=== PATIENT | male | born 1960 | race African-American/Black ===

== ENCOUNTER 2020-02-14 05:47 | Emergency (ER) | payer OTHER ==
[~2020-02-14] VITALS: Ht 180.3 cm; Wt 75.8 kg
[2020-02-14] MEDS ORDERED: CHILDREN'S ASPI81 MG PO (06:12)
[2020-02-14] MEDS ORDERED: NORVASC 2.5 MG2.5 M1 PO (06:12)
[2020-02-14] MEDS ORDERED: CALAMINE LOTIO177 M1 TOP (06:13)
[2020-02-14] MEDS ORDERED: LIPITOR80 MG PO (06:13)
[2020-02-14] MEDS ORDERED: CHOLECALCIFEROL PO (06:14)
[2020-02-14] MEDS ORDERED: CARVEDILOL25 MG PO (06:14)
[2020-02-14] MEDS ORDERED: CLOPIDOGREL75 MG PO (06:15)
[2020-02-14] MEDS ORDERED: CLONIDINE PATCH TRANSDERM (06:15)
[2020-02-14] MEDS ORDERED: VOLTAREN100 GM TOP (06:16)
[2020-02-14] MEDS ORDERED: COLACE100 MG PO (06:17)
[2020-02-14] MEDS ORDERED: FERROUS SULFATE PO (06:17)
[2020-02-14] MEDS ORDERED: FUROSEMIDE 40 M40 MG PO (06:18)
[2020-02-14] MEDS ORDERED: MUCINEX600 MG PO (06:18)
[2020-02-14] MEDS ORDERED: HYDRALAZINE 5050 MG PO (06:19)
[2020-02-14] MEDS ORDERED: ZOFRAN 4 MG ORAL4 MG PO (06:19)
[2020-02-14] MEDS ORDERED: ZOFRAN4 MG PO (06:20)
[2020-02-14] MEDS ORDERED: PROTONIX40 M2 PO (06:20)
[2020-02-14] MEDS ORDERED: SERTRALINE HCL100 MG PO (06:21)
[2020-02-14] MEDS ORDERED: GAS RELIEF80 MG PO (06:21)
[2020-02-14] MEDS ORDERED: FLOMAX0.4 MG PO (06:22)
[2020-02-14] MEDS ORDERED: TUMS PO (06:22)
[2020-02-14] MEDS ORDERED: TYLENOL PO (06:23)
[2020-02-14] MEDS ORDERED: [UNRECOGNIZED DRUG - OTHER] TOP (06:24)
[2020-02-14] MEDS ORDERED: EC-NAPROSYN375 MG PO (06:33)
[2020-02-14 06:37] VITALS: BP 147/96
== END 2020-02-14 06:46 | disposition home or self-care (01) ==
LOC: ER 05:47
DX: M70.21 Olecranon bursitis, right elbow (principal); I10 Essential (primary) hypertension; Z79.82 Long term (current) use of aspirin; Z79.899 Other long term (current) drug therapy; Y93.89 Activity, other specified

== ENCOUNTER 2020-02-22 06:00 | Emergency (ER) | payer OTHER ==
[~2020-02-22] VITALS: Ht 180.3 cm; Wt 75.8 kg
--- NOTE | ~2020-02-22 | EKG ---
[facility] Raul Pope [place] [address] ELECTROCARDIOGRAM REPORT Name: JOSE ROBLES Room #: DEP [facility].#: [id number] Admission: 02/22/20 Attend Phys: Discharge: 02/22/20 Date of : 60 Report #: [id number] THIS REPORT FOR: cc: [facility] - Clinic physician unknown [facility] - Clinic physician unknown Kadie Engle MD ~ THIS REPORT FOR: //name// Default Test Date: 2020-02-22 Test Time: 09:00:06 Pat Name: JOSE ROBLES Department: Room: Gender: M Adult Caregiver: JOHN : 1960 Requested By: oYel Montyoa Order Number: [id number] MD: Measurements Intervals [place] Rate: 61 P: 69 NE: 126 QRS: 65 QRSD: 96 T: 84 QT: 433 QTc: 437 Interpretive Statements Sinus rhythm Probable left atrial enlargement Left ventricular hypertrophy Borderline T abnormalities, lateral leads ST elevation, consider anterior injury Baseline wander in lead(s) V6 No previous ECG available for comparison [email or web address] By: 0900 9 Epiphany EpiphanyMD /EPI
[~2020-02-22 06:00] MED LIST: CALAMINE LOTIO177 M1 TOP; CARVEDILOL25 MG PO; CHILDREN'S ASPI81 MG PO; CHOLECALCIFEROL PO; CLONIDINE PATCH TRANSDERM; CLOPIDOGREL75 MG PO; COLACE100 MG PO; EC-NAPROSYN375 MG PO; FERROUS SULFATE PO; FLOMAX0.4 MG PO; FUROSEMIDE 40 M40 MG PO; GAS RELIEF80 MG PO; HYDRALAZINE 5050 MG PO; LIPITOR80 MG PO; MUCINEX600 MG PO; NORVASC 2.5 MG2.5 M1 PO; PROTONIX40 M2 PO; SERTRALINE HCL100 MG PO; TUMS PO; TYLENOL PO; VOLTAREN100 GM TOP; ZOFRAN 4 MG ORAL4 MG PO; ZOFRAN4 MG PO; [UNRECOGNIZED DRUG - OTHER] TOP
[2020-02-22 09:20] LABS: ABSOLUTE NEUTROPHILS 6.3 thou/uL (1.4-8.2); BASOPHILS 1.1 % (0.0-2.0); EOSINOPHILS 2.1 % (0.0-3.0); HEMATOCRIT 30.8 % (42.0-52.0); LYMPHOCYTES 14.7 % (24.0-44.0); MCH 28.7 pg (26.0-34.0); MCHC 32.3 g/dL (28.0-37.0); MCV 88.9 fL (80.0-100.0); MONOCYTES 7.7 % (1.0-8.0); PLATELET COUNT 189 thou/uL (150-400); POLYS 74.4 % (36.0-66.0); RBC 3.47 mil/uL (4.50-6.00); RDW 16.2 % (10.5-14.5); WBC 8.4 thou/uL (4.0-11.0)
[2020-02-22 09:59] LABS: CALCIUM 9.1 mg/dL (8.5-10.1); POTASSIUM 4.7 mmol/L (3.5-5.1)
[2020-02-22 10:07] LABS: PLATELET ESTIMATE NORMAL
[2020-02-22] MEDS ORDERED: ULTRAM 50MG TAB50 MG PO (10:29)
[2020-02-22 11:06] VITALS: BP 125/94
== END 2020-02-22 11:06 | disposition home or self-care (01) ==
LOC: ER 06:00
PROVIDERS: Emergency Medicine
DX: M25.462 Effusion, left knee (principal); I12.0 Hypertensive chronic kidney disease with stage 5 chronic kidney disease or end stage renal disease; N18.6 End stage renal disease; F17.210 Nicotine dependence, cigarettes, uncomplicated; Z99.2 Dependence on renal dialysis; Z95.828 Presence of other vascular implants and grafts; Z79.899 Other long term (current) drug therapy; Z79.82 Long term (current) use of aspirin

== ENCOUNTER 2020-02-28 09:32 | Inpatient (IN) | payer OTHER ==
[2020-02-28] VITALS (7 sets, daily range): BP systolic 115–137; BP diastolic 74–91
[~2020-02-28] VITALS: Ht 180.3 cm; Wt 64.7 kg
--- NOTE | ~2020-02-28 | HC ---
[facility] [place] [address] CONSULTATION Name: JOSE ROBLES Room #: 208-P [facility] IN ..#: [id number] Admission: 02/28/20 Attend Phys: Sarah Mcmanus Discharge: Date of : 60 Report #: [id number] THIS REPORT FOR: cc: JAIDEN - Family physician unknown JAIDEN - Family physician unknown Jacobo Duggan MD ~ CC: JAIDEN unknown Sarah Mcmanus DATE OF SERVICE: 02/28/2020 NEPHROLOGY CONSULTATION REASON FOR CONSULTATION: End-stage renal disease requiring hemodialysis. HISTORY OF PRESENT ILLNESS: This is a 59-year-old male with a history of end-stage renal disease. He is a chronic hemodialysis patient. He presented by EMS to the Emergency Room today with chest pain. This chest pain actually started yesterday morning continued intermittently overnight and again this morning. He has a history of coronary artery disease with previous coronary artery stent placement done at [facility]. He states the pain was similar to his pain he had prior to that. He was accompanied by some mild dyspnea, nausea, and diaphoresis. It improved and is better now. He is heading to the prosthetic lab technician for coronary angiography. From a renal standpoint, the patient has end-stage renal disease due to hypertension. He has been on dialysis for nearly a year. He dialyzes using a left upper arm brachiobasilic fistula. He dialyzes at dialysis care center at [facility] ____. He dialyzes on a Wednesday, , Wednesday basis and last dialyzed yesterday on 02/27/2020. He states he usually dialyzes 4 hours with about a 3 liter ultrafiltration. He states his dialysis has been fairly uncomplicated. PAST MEDICAL HISTORY: Longstanding hypertension, which led to his end-stage renal disease. He is on at least 5 drugs for hypertension. Within about 6 months ago or a year he had chest pain and had an elevated troponin and had the coronary artery stent placed at [place]. He is unaware what artery that is in. Only other surgery was for his dialysis fistula. He has been a long-term smoker. He knows of no underlying pulmonary problems. MEDICATIONS: On admission includes amlodipine 10 mg daily, furosemide 80 mg twice daily, tamsulosin 0.8 mg daily, carvedilol 25 mg b.i.d., hydralazine 100 mg t.i.d. and a Catapres patch weekly. He is also on pantoprazole 40 mg daily, aspirin 81 mg daily, Plavix 75 mg daily, sertraline 100 mg daily and several p.r.n. medications. [address] [address] CONSULTATION Name: JOSE ROBLES Michael Room #: 208-P [facility] IN M.R.#: [id number] Admission: 02/28/20 Attend Phys: Sarah Mcmanus Discharge: Date of : 60 Report #: [id number] FAMILY HISTORY: Negative for renal disease. SOCIAL HISTORY: The patient is a , lives in [place], [place]. He is medically disabled. He had stopped smoking after he had coronary stents placed, but started again over the past month or two and states he can quit again. REVIEW OF SYSTEMS: Chest pain is currently better. Denies dyspnea. Denies cough or fever. States his dialysis have gone okay. He has not had recent edema. He has occasional nausea. No change in bowel habits at this time. No fever or suggestions of COVID symptoms. PHYSICAL EXAMINATION: GENERAL: A 59-year-old male, awake, alert and oriented, in no distress at this time. VITAL SIGNS: Blood pressure 125/76, heart rate 62, respiratory rate 9, temperature 37.2 degrees centigrade, oxygen saturation 100%. HEENT: Shows pupils are equal and reactive. Sclerae nonicteric. Oral mucosa is moist. NECK: Shows no JVD or adenopathy. CHEST: Clear bilaterally. BACK: Shows no CVA tenderness. CARDIOVASCULAR: Heart has a regular rate and rhythm. No murmur, gallop or rub. ABDOMEN: Has active bowel sounds, is soft and nontender. No organomegaly or masses. EXTREMITIES: Show no edema. He has a left upper arm brachiobasilic fistula with strong flow. LABORATORY DATA: Sodium 130, potassium 3.9, chloride 93, bicarbonate 26, BUN 50, creatinine 7.7, glucose 98, calcium 8.8. Troponin 0.45, hemoglobin 10.7, hematocrit 32.9, white count 10.3, platelets 186,000, normal differential on the white count. Chest x-ray is clear. ASSESSMENT: 1. End-stage renal disease, with chronic hemodialysis. He is due for dialysis tomorrow morning. He will be going for a cardiac catheterization. I will order the dialysis for the morning including followup labs. We will run him his usual run of 4 hours with 3 liters of ultrafiltration. 2. Hypertension, historically severe. He is on 5 medications. Volume is pretty good on exam. 3. Coronary artery disease with current chest pain. He had a previous cardiac catheterization and stent. We will await cardiology's word once they do his catheterization as to the status of those vessels. 4. Anemia of end-stage renal disease. We will defer to his outpatient dialysis [facility] [address] [place] [address] CONSULTATION Name: JOSE ROBLES Room #: 208-P [facility] IN .R.#: [id number] Admission: 02/28/20 Attend Phys: Sarah Mcmanus Discharge: Date of : 60 Report #: [id number] unit for management unless it changes abruptly. PLAN: 1. I will schedule dialysis first thing tomorrow morning depending upon the timing of his cardiac catheterization. 2. Concerning his blood pressure control, he could work off some of those medications and work more on volume control and get his blood pressure generally better. I will not make those changes at this point, as we would need more time available. 3. We will follow along the care of this pleasant patient. By: 1649 1709 Jacobo Duggan MD /ricardo
--- NOTE | ~2020-02-28 | EMS ---
[address] [address] EMS Patient Care Report Name: JOSE ROBLES Room #: REG SVITLANA Tristan#: [id number] Admission: 02/28/20 Attend Phys: Discharge: Date of : 60 Report #: [id number] THIS REPORT FOR: //name// Report Transmitted: 02/28/2020 10:11 EMS Care Summary [place], [place]/[facility] Incident [id number] @ 02/28/2020 08:49 Incident [id number] [place] [address] Patient JOSE ROBLES Male, 59 Years 1960 Patient Address [id number] [place] [address] [address] [place] [address] Patient History Congestive Heart Failure (CHF),Hypertension (HTN),Stroke/CVA,Dialysis, Patient Allergies Penicillin allergy, Patient Medications Amlodipine, Atorvastatin, Furosemide, Carvedilol, Heparin, Hydralazine, Chief Complaint CHEST PAIN Disposition Transported No Lights/[place] Dispatch Reason Chest Pain (Non-Traumatic) Transported To [facility] Narrative PT FOUND SITTING IN WHEELCHAIR OUTSIDE. [facility] P45 ON SCENE. ALL CREW WEARING MASKS. STAFF STATES THAT PT AHS BEEN C/O CP, R SHOULDER PAIN AND NUMB FINGERS THIS AM. PT STATES THAT IT IS A /10. PT DENIES N/V, SOA OR OTHER COMPLAINTS. PT STATES THAT HE WAS BREATHING FAST WHEN FINGERS STARTED TO TINGLE AND THEY [address] [address] EMS Patient Care Report Name: JOSE ROBLES Room #: REG [facility].#: [id number] Admission: 02/28/20 Attend Phys: Discharge: Date of : 60 Report #: [id number] AREN'T ANY MORE. PT GIVEN MASK FOR TRANSPORT. TRASNPORTED WITHOUT INCIDENT. Initial Vitals @09:14P: 63,CO: 7, @09:18P: 62,BP: 138/88,CO: 5, @09:09P: 62,BP: 136/85,CO: 7,SpO2: 100, @09:07P: 61,R: 18,BP: 154/93,Pain: 6/10,GCS: 14,Glucose: 80,SpO2: 100,Revised Trauma: 12,SC Suspected: false Assessments @09:04MENTAL:No Abnormalities,SKIN:No Abnormalities,HEENT:Head/Face: No Abnormalities,Eyes: No Abnormalities,Neck/Airway: No Abnormalities,LUNG SOUNDS:ABDOMEN:PELVIS//GI:EXTREMITIES:PULSE:NEURO:No Abnormalities, Impression Chest Pain / Discomfort Procedures @09:17Aspirin - 324 Milligrams (mg) - OralResponse: Unchanged@09:18Nitrostat - 0.4 Milligrams (mg) - SublingualResponse: Unchanged@09:1412-Lead ECGResponse: UnchangedSucceeded@09:04ALS AssessmentResponse: UnchangedSucceeded@09:13Saline Lock 10cc (20 ga) Site: Forearm-LeftResponse: UnchangedSucceeded@09:25Nitrostat - 0.4 Milligrams (mg) - SublingualResponse: Unchanged Timeline 08:47,Call Received 08:47,Dispatch Notified 08:49,Dispatched 08:50,En Route 09:02,On Scene 09:04,At Patient 09:04,ALS Assessment,Response: UnchangedSucceeded, 09:07,BP: 154/93 M,PULSE: 61,RR: 18 R,SPO2: 100 Ox,ETCO2: ,B,PAIN: 6,GCS: 14, 09:09,BP: 136/85 M,PULSE: 62,RR: R,SPO2: 100 Ox,ETCO2: ,BG: ,PAIN: ,GCS: , 09:13,Saline Lock 10cc 20 ga Site: Forearm-Left,Response: UnchangedSucceeded, 09:14,12-Lead ECG,Response: UnchangedSucceeded, 09:14,BP: / M,PULSE: 63,RR: R,SPO2: Ox,ETCO2: ,BG: ,PAIN: ,GCS: , 09:17,Aspirin - 324 Milligrams (mg) - Oral,Response: Unchanged 09:18,Nitrostat - 0.4 Milligrams (mg) - Sublingual,Response: Unchanged 09:18,BP: 138/88 M,PULSE: 62,RR: R,SPO2: Ox,ETCO2: ,BG: ,PAIN: ,GCS: , 09:19,Depart Scene 09:25,Nitrostat - 0.4 Milligrams (mg) - Sublingual,Response: Unchanged 09:28,At Destination 09:53,Call Closed [facility] [address] [place] [address] EMS Patient Care Report Name: TRAVISJOSE Room #: [facility] M.R.#: [id number] Admission: 02/28/20 Attend Phys: Discharge: Date of : 60 Report #: [id number] Disclaimer v1.1 Copyright 2020 [employer] This EMS Care Summary contains data elements from the applicable legal record (which may be displayed differently). It is designed to provide pertinent information for the following purposes: continuity of care, clinical quality, and state data reporting. The complete legal record is available to ED staff and administrators of the receiving hospital in [facility]'s Patient Tracker. All data is provided "as is."
[~2020-02-28 09:32] MED LIST changes: +ULTRAM 50MG TAB50 MG PO
[2020-02-28 09:53] LABS: BASOPHILS 0.9 % (0.0-2.0); EOSINOPHILS 2.1 % (0.0-3.0); HEMATOCRIT 32.9 % (42.0-52.0); HEMOGLOBIN 10.7 gm/dL (14.0-18.0); LYMPHOCYTES 11.8 % (24.0-44.0); MCH 28.6 pg (26.0-34.0); MCHC 32.4 g/dL (28.0-37.0); MONOCYTES 7.3 % (1.0-8.0); PLATELET COUNT 186 thou/uL (150-400); POLYS 77.9 % (36.0-66.0); RBC 3.74 mil/uL (4.50-6.00); RDW 15.9 % (10.5-14.5); WBC 10.3 thou/uL (4.0-11.0)
[2020-02-28 10:01] LABS: CALCIUM 8.8 mg/dL (8.5-10.1); CREATININE 7.7 mg/dL (0.7-1.3); POTASSIUM 3.9 mmol/L (3.5-5.1)
[2020-02-28 10:10] LABS: TROPONIN-I 0.45 ng/mL (<0.06)
--- NOTE | 2020-02-28 14:31 | EKG ---
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 : 1960 Requested By: Cipriano Ohara Order Number: [id number] MD: Terrance Gonzalez Measurements Intervals [place] Rate: 70 P: 64 [place]: 125 QRS: 51 QRSD: 74 T: 134 QT: 451 QTc: 487 Interpretive Statements Sinus rhythm Left atrial enlargement Probable left ventricular hypertrophy Anterior Q waves, possibly due to LVH Nonspecific T abnormalities, lateral leads Compared to ECG 02/22/2020 09:00:06 Electronically Signed On 02-28-2020 14:31:23 CDT by Terrance Gonzalez [email or web address] <ELECTRONICALLY SIGNED> By: Terrance Gonzalez MD 02/28/20 1431 0933 0933 Terrance Gonzalez MD /EPI
--- NOTE | 2020-02-28 14:31 | EKG ---
[facility] Raul [place] [employer] [address] ELECTROCARDIOGRAM REPORT Name: TRAVISJOSE Rodriguez Room #: 208-P ADM IN M.R.#: [id number] Admission: 02/28/20 Attend Phys: Sarah Mcmanus Discharge: Date of : 60 Report #: [id number] THIS REPORT FOR: cc: FAM - Family physician unknown FAM - Family physician unknown Terrance Gonzalez MD ~ THIS REPORT FOR: //name// [facility] ED Test Date: 2020-02-28 Test Time: 10:48:31 Pat Name: JOSE ROBLES Department: Room: [facility] Gender: M Tool Liaison: TAMIA : 1960 Requested By: Cipriano Ohara Order Number: [id number] MD: Terrance Gonzalez Measurements Intervals [place] Rate: 60 P: 71 [place]: 126 QRS: 59 QRSD: 75 T: 106 QT: 466 QTc: 466 Interpretive Statements Sinus rhythm Probable left atrial enlargement Probable left ventricular hypertrophy Anterior Q waves, possibly due to LVH Nonspecific T abnormalities, lateral leads Compared to ECG 02/28/2020 09:33:58 No significant changes Electronically Signed On 02-28-2020 14:31:49 CDT by Terrance Gonzalez [email or web address] <ELECTRONICALLY SIGNED> By: Terrance Gonzalez MD 02/28/20 1431 1048 1048 Terrance Gonzalez MD /EPI
--- NOTE | 2020-02-28 17:55 | CATHLAB ---
[facility] [place] [address] INVASIVE PROCEDURE REPORT Name: JOSE ROBLES Room #: 208-P ADM IN M.R.#: [id number] Admission: 02/28/20 Attend Phys: Sarah Mcmanus Discharge: Date of : 60 Report #: [id number] THIS REPORT FOR: cc: FAM - Family physician unknown FAM - Family physician unknown Ruben Devine MD [facility] ~ APPROVED REPORT Study performed: 02/28/2020 16:50:32 Patient Details Patient Status: In-Patient Room #: The patient is a 59 year-old male Event Personnel Ruben Devine Manager Health,, Virginia Villegas RN RN, Lizzie Askew RTR, FLUMER Monitor, Isidro Larson RTR Mark Gotti Sherra RTR Monitor, Karuna Huff Monitor Procedures Performed Art Access - R femoral artery* 16779 Initial Mod Sed Same Phys/QHP Gr5y 382030 Left Heart Cath w/or w/o Coronaries [id number] [facility] Hemostasis w/ Mynx Indication Chest pain Procedure Narrative The patient was brought urgently to the Cardiac Catheterization Laboratory and was prepped and draped in a sterile manner. The Right Groin^ was infiltrated with 1% Lidocaine subcutaneous anesthesia. A PINNACLE 6FR Sheath #[id number] sheath was inserted into the RFA^. Coronary angiography was performed using coronary diagnostic catheters. The right coronary system was accessed and visualized with a JR 4 catheter. The left coronary system was accessed and visualized with a JL 4 catheter. The left ventricle was accessed and visualized with a Pigtail catheter. Left ventricular/Aortic Valve gradient assessed via catheter pullback. Left ventriculogram was performed in [place] projection. Closure device was deployed with a 6 Fr Mynx. The patient tolerated the procedure well and there were no complications associated with the procedure. There was no hematoma. Intraoperative Conscious Sedation Sedation start time: 17:16 Case end Time: [facility] [employer] [place] [address] INVASIVE PROCEDURE REPORT Name: JOSE ROBLES Room #: 208-P [facility] IN .R.#: [id number] Admission: 02/28/20 Attend Phys: Sarah Sosa Discharge: Date of : 60 Report #: [id number] 17:40 Fentanyl 50 mcg Versed 1 mg Fluoro Time: 1.00 minutes Dose: DAP 2713.00 cGycm2 367 mGy Contrast Type and Amount: Omnipaque 100 ml Coronary Angiography The patient's coronary anatomy is right dominant. Diagnostic Cath Left Main Normal left main LAD Normal left anterior descending Diagonal 1 Normal, large first diagonal branch Circumflex Large, codominant circumflex OM1 Very small first marginal branch, normal OM2 Small second marginal branch, normal L PDA Moderate size posterior descending, angiographically normal Right Coronary Codominant right coronary, angiographically normal R PDA Small posterior descending, angiographically normal Left Ventriculography The left ventricle is normal in size with normal contractility. The left ventricular ejection fraction is estimated to be 65-70%. Left ventricular wall motion abnormalities are not present. There is no mitral insufficiency. Hemodynamics The aortic pressure is 156/81 mmHg with a mean of 112 mmHg. The left ventricular pressure is 156/5 mmHg with a mean of mmHg. The left ventricular end diastolic pressure is 25 mmHg. Conclusion 1. Normal to hyperdynamic global and regional left ventricular systolic function. Ejection fraction 65-70% 2. Normal left main 3. Normal codominant circulation. <ELECTRONICALLY SIGNED> By: Ruben Devine MD, FACC 02/28/201753 53 53 Ruben Devine MD, FACC /INF
[2020-02-29 00:13] VITALS: BP 140/79
[2020-02-29 03:50] VITALS: BP 144/85
[2020-02-29 05:42] LABS: ALBUMIN 2.8 g/dL (3.4-5.0); CALCIUM 8.7 mg/dL (8.5-10.1); PHOSPHORUS 6.8 mg/dL (2.5-4.9); POTASSIUM 4.2 mmol/L (3.5-5.1)
[2020-02-29 05:47] LABS: CREATININE 8.8 mg/dL (0.7-1.3)
[2020-02-29 07:49] VITALS: BP 138/89
[2020-02-29 11:12] VITALS: BP 130/82
--- NOTE | 2020-02-29 12:36 | 2DMMODE ---
[facility] [address] [place] [address] 2 D/M-MODE ECHOCARDIOGRAM Name: JOSE ROBLES Michael Room #: 208-P ADM IN M.R.#: [id number] Admission: 02/28/20 Attend Phys: Sarah Mcmanus Discharge: Date of : 60 Report #: [id number] THIS REPORT FOR: cc: FAM - Family physician unknown FAM - Family physician unknown Ruben Devine MD [facility] ~ APPROVED REPORT Study performed: 02/29/2020 11:59:20 EXAM: Comprehensive 2D, Doppler, and color-flow Echocardiogram Patient Location: Bedside Room #: 208 Status: routine BSA: 1.80 HR: 59 bpm BP: 149/89 mmHg Rhythm: Bradycardia Other Information Study Quality: Good Indications CAD Elevated Troponin Chest Pain Hypertension/HDD FL 2D Dimensions RVDd: 39.29 mm IVSd: 12.25 (7-11mm) LVOT Diam: 21.11 (18-24mm) LVDd: 44.84 mm PWd: 12.55 (7-11mm) Ascending Ao: 32.36 (22-36mm) LVDs: 30.51 (25-40mm) Aortic Root: 33.24 mm IVC: 19.00 mm Volumes Left Atrial Volume (Systole) Single Plane 4CH: 41.60 mL Single Plane 2CH: 71.45 mL LA ESV Index: 34.00 mL/m2 Aortic Valve AoV Peak Timothy.: 1.51 m/s [facility] [address] [place] [address] 2 D/M-MODE ECHOCARDIOGRAM Name: JOSE ROBLES Michael Room #: 208-P [facility] IN ..#: [id number] Admission: 02/28/20 Attend Phys: Sarah Sosa Discharge: Date of : 60 Report #: [id number] AO Peak Gr.: 9.15 mmHg LVOT Max P.14 mmHg LVOT Max V: 1.24 m/s JULIO C Vmax: 2.87 cm2 Mitral Valve E/A Ratio: 1.4 MV Decel. Time: 215.67 ms MV E Max Timothy.: 0.80 m/s MV A Timothy.: 0.56 m/s MV PHT: 62.54 ms IVRT: 101.50 ms Pulmonary Valve PV Peak Timothy.: 1.08 m/s PV Peak Gr.: 4.73 mmHg Pulmonary Vein P Vein S: 0.44 m/s P Vein A: 0.22 m/s P Vein D: 0.35 m/s P Vein A Dur.: 87.7 msec P Vein S/D Ratio: 1.26 Tricuspid Valve TR Peak Timothy.: 2.51 m/s TR Peak Gr.: 25.29 mmHg PA Pressure: 30.00 mmHg Left Ventricle The left ventricle is normal size. There is normal LV segmental wall motion. Mild concentric left ventricular hypertrophy. The left ventricular systolic function is normal. The left ventricular ejection fraction is within the normal range. LVEF is 55-60%. The left ventricular diastolic function is normal. Right Ventricle The right ventricle is normal size. The right ventricular systolic function is normal. Atria Left atrium is at the upper limits of normal. The right atrium size is normal. Aortic Valve The aortic valve is normal in structure. No aortic regurgitation is present. There is no aortic valvular stenosis. Mitral Valve The mitral valve is normal in structure. Trace to mild mitral [facility] [address] [place] [address] 2 D/M-MODE ECHOCARDIOGRAM Name: JOSE ROBLES Room #: 208-P [facility] IN .R.#: [id number] Admission: 02/28/20 Attend Phys: Sarah Sosa Discharge: Date of : 60 Report #: [id number] regurgitation. No evidence of mitral valve stenosis. Tricuspid Valve The tricuspid valve is normal in structure. There is trace tricuspid regurgitation. Estimated PAP 30 mmHg. There is no pulmonary hypertension. Pulmonic Valve The pulmonary valve is normal in structure. There is no pulmonic valvular regurgitation. Great Vessels The aortic root is normal in size. IVC is normal in size and collapses >50% with inspiration. Pericardium Trace pericardial effusion. <Conclusion> The left ventricular systolic function is normal. There is normal LV segmental wall motion. Mild concentric left ventricular hypertrophy. LVEF 55-60%. The aortic valve is normal in structure. No aortic regurgitation or stenosis. The mitral valve is normal in structure. Trace to mild mitral regurgitation. There is trace tricuspid regurgitation. Estimated pulmonary artery pressure of 30 mmHg. Trace pericardial effusion. <ELECTRONICALLY SIGNED> By: Ruben Devine MD, [facility] 02/29/20 1236 1236 1236 Ruben Devine MD, FAC /INF
== END 2020-02-29 15:30 | DRG 280 ==
LOC: ER 09:32 → 2N 11:18 → EROBS 11:18 → ER 11:18 → 2N 02-29 15:30
PROVIDERS: Emergency Medicine; Internal Medicine Nephrology; ADMIT Hospitalist; ATTEND Hospitalist
DX: I21.3 ST elevation (STEMI) myocardial infarction of unspecified site (principal); N18.6 End stage renal disease; I13.2 Hypertensive heart and chronic kidney disease with heart failure and with stage 5 chronic kidney disease, or end stage renal disease; F12.90 Cannabis use, unspecified, uncomplicated; F17.210 Nicotine dependence, cigarettes, uncomplicated; I50.9 Heart failure, unspecified; I25.10 Atherosclerotic heart disease of native coronary artery without angina pectoris; K21.9 Gastro-esophageal reflux disease without esophagitis; Z95.5 Presence of coronary angioplasty implant and graft; Z20.828 Contact with and (suspected) exposure to other viral communicable diseases; Z86.73 Personal history of transient ischemic attack (TIA), and cerebral infarction without residual deficits; Z86.718 Personal history of other venous thrombosis and embolism; Z79.82 Long term (current) use of aspirin; Z79.899 Other long term (current) drug therapy; I25.2 Old myocardial infarction; Z71.6 Tobacco abuse counseling
CPT/HCPCS: 10797; 32100

== ENCOUNTER 2020-11-20 07:10 | Inpatient (IN) | payer OTHER ==
[~2020-11-20] VITALS: Ht 180.3 cm; Wt 74.4 kg
--- NOTE | ~2020-11-20 | HC ---
[facility] [address] CONSULTATION Name: JOSE ROBLES Room #: 354-P [facility] IN M.R.#: [id number] Admission: 11/20/20 Attend Phys: Sarah Mcmanus Discharge: Date of : 60 Report #: [id number] THIS REPORT FOR: cc: FAM - Family physician unknown FAM - Family physician unknown David Gillespie MD ~ REASON FOR CONSULTATION: End-stage renal disease. REASON FOR PRESENTATION: Chest pain and numerous other complaints. HISTORY OF PRESENT ILLNESS: This is a 60-year-old end-stage renal disease patient, maintained on hemodialysis every Wednesday, Wednesday and Wednesday. He presented to the Emergency Room with numerous complaints including chest pain. He was also not happy with the fact that the nursing staff in his facility is not addressing his concerns. He was found to have a mildly elevated troponin and was admitted for further evaluation and management. I was asked to assist with the management of his end-stage renal disease. The patient is known to have end-stage renal disease due to hypertension. He is dialyzing utilizing a left-sided AV fistula every Wednesday, and Wednesday. PAST SURGICAL HISTORY: Left-sided AV fistula. FAMILY HISTORY: Significant for hypertension. SOCIAL HISTORY: He resides in a nursing facility. He is an ex-smoker. No drug or alcohol abuse. MEDICATIONS: 1. Tamsulosin. 2. Plavix. 3. Clonidine. 4. Hydralazine. 5. Carvedilol. 6. Keppra. 7. Sevelamer. PAST MEDICAL HISTORY: 1. End-stage renal disease, maintained on hemodialysis. 2. Hypertension. 3. Coronary artery disease. 4. History of deep venous thrombosis. 5. AV fistula. 6. Cardiac stents. ALLERGIES: PENICILLIN. [facility] [address] [place] [address] CONSULTATION Name: TRAVISJOSE MONROE Room #: 354-P [facility] IN ..#: [id number] Admission: 11/20/20 Attend Phys: Sarah Mcmanus Discharge: Date of : 60 Report #: [id number] PHYSICAL EXAMINATION: VITAL SIGNS: Temperature 36.6, pulse rate 70, respiratory rate is 16, blood pressure is 187/110. HEAD AND NECK: No jugular venous distention. CHEST: No crackles. CARDIOVASCULAR: No rub. ABDOMEN: Soft. No tenderness. LOWER EXTREMITIES: Trace edema. REVIEW OF SYSTEMS: GENERAL: No fever or chills. CARDIOVASCULAR: As per the history of present illness. PULMONARY: No cough or hemoptysis. GASTROINTESTINAL: No nausea or vomiting. MUSCULOSKELETAL: Occasional myalgias. SKIN: No rash or ulcerations. HEMATOLOGICAL: No bleeding. No bruises. LABORATORY DATA: Reviewed. Hemoglobin 9.7. Sodium 136, potassium 5.1, BUN 61, creatinine is 9.1. Chest CT reviewed with nonspecific pulmonary nodules. Chest x-ray, cardiomegaly with pulmonary edema. IMPRESSION AND PLAN: 1. End-stage renal disease. 2. Pulmonary edema. 3. Hypertension. 4. Arrangement for the patient to have his usual hemodialysis today. 5. Resume blood pressure medications. 6. Cardiac evaluation. 7. We will continue to follow during his hospital stay. By: 0815 [id number] David Gillespie MD /nt
[2020-11-20 07:11] VITALS: BP 167/107
--- NOTE | 2020-11-20 07:41 | EKG ---
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1960 Requested By: Chicho Arnold Order Number: [id number] MD: Juarez Louis Measurements Intervals [place] Rate: 67 P: 64 [place]: 129 QRS: 52 QRSD: 74 T: 30 QT: 448 QTc: 473 Interpretive Statements Sinus rhythm Probable left atrial enlargement Borderline T wave abnormalities Baseline wander in lead(s) I,II,aVR,V5 Compared to ECG 02/28/2020 10:48:31 Left ventricular hypertrophy no longer present Q waves no longer present T-wave abnormality still present Electronically Signed On 11-20-2020 7:41:42 CDT by Juarez Louis [email or web address] <ELECTRONICALLY SIGNED> By: Juarez Louis MD, [facility] 03/740 5 5 Juarez Louis MD, [facility] /EPI
[2020-11-20 07:43] LABS: ABSOLUTE NEUTROPHILS 6.5 thou/uL (1.4-8.2); BASOPHILS 1.2 % (0.0-2.0); EOSINOPHILS 4.6 % (0.0-3.0); HEMATOCRIT 30.1 % (42.0-52.0); HEMOGLOBIN 9.7 gm/dL (14.0-18.0); LYMPHOCYTES 10.5 % (24.0-44.0); MCH 28.7 pg (26.0-34.0); MCHC 32.1 g/dL (28.0-37.0); MCV 89.3 fL (80.0-100.0); MONOCYTES 6.3 % (1.0-8.0); PLATELET COUNT 145 thou/uL (150-400); POLYS 77.4 % (36.0-66.0); RBC 3.37 mil/uL (4.50-6.00); RDW 16.5 % (10.5-14.5); WBC 8.4 thou/uL (4.0-11.0)
[2020-11-20 07:49] LABS: CALCIUM 9.4 mg/dL (8.5-10.1); CREATININE 9.5 mg/dL (0.7-1.3); POTASSIUM 5.1 mmol/L (3.5-5.1)
[2020-11-20 07:59] LABS: ALBUMIN 3.3 g/dL (3.4-5.0); TOTAL BILIRUBIN 0.4 mg/dL (0.2-1.0); TOTAL PROTEIN 7.5 g/dL (6.4-8.2)
[2020-11-20] MEDS ORDERED: LIPITOR40 MG PO (08:02)
[2020-11-20] MEDS ORDERED: CATAPRES-TTS 31 EAC1 TRANSDERM (08:03)
[2020-11-20 08:05] LABS: TROPONIN-I 1.02 ng/mL (<0.06)
[2020-11-20] MEDS ORDERED: CLONIDINE HCL0.3 M3 PO (08:06)
[2020-11-20] MEDS ORDERED: PROSCAR 5MG TABL5 M1 PO (08:07)
[2020-11-20] MEDS ORDERED: FLOMAX0.4 MG PO (08:09)
[2020-11-20] MEDS ORDERED: GLYCOLAX119 GM PO (08:10)
[2020-11-20] MEDS ORDERED: ALBUTEROL2.5 MG/31 INH (08:12)
[2020-11-20] MEDS ORDERED: KEPPRA XR500 MG PO ×2 (08:14→10:00)
[2020-11-20 09:42] LABS: URINE BILIRUBIN NEGATIVE (Negative); URINE BLOOD NEGATIVE (Negative); URINE CLARITY CLEAR; URINE COLOR YELLOW; URINE GLUCOSE-RANDOM* TRACE (Negative); URINE KETONES NEGATIVE (Negative); URINE LEUKOCYTES-REFLEX NEGATIVE (Negative); URINE NITRITE-REFLEX NEGATIVE (Negative); URINE PROTEIN (DIPSTICK) 3+ (Negative); URINE SPECIFIC GRAVITY 1.015 (1.005-1.035); URINE UROBILINOGEN 0.2 E.U./dl (0.2-1.0)
[2020-11-20 09:58] VITALS: BP 169/104
[2020-11-20 09:59] LABS: BACTERIA-REFLEX None Seen /HPF (None Seen); CASTS None Seen /LPF (None Seen); CRYSTALS None Seen /LPF (None Seen); SQUAMOUS 0-3 Few /LPF (0-3); URINE RBC None Seen /HPF (0-2); URINE WBC-REFLEX 0-5 Rare /HPF (0-5)
[2020-11-20 10:00] LABS: MUCUS 0-3 Light strn/LPF (None Seen)
[2020-11-20] MEDS ORDERED: NEPHRO-VITE RX1 TA1 PO (10:01)
[2020-11-20] MEDS ORDERED: RENVELA800 MG PO (10:03)
[2020-11-20] MEDS ORDERED: ZOLOFT50 M1 PO (10:03)
[2020-11-20] MEDS ORDERED: PROTONIX40 M2 PO (10:03)
[2020-11-20] MEDS ORDERED: TRAMADOL 50 MG50 MG PO (10:04)
[2020-11-20] MEDS ORDERED: CARVEDILOL25 MG PO (10:04)
[2020-11-20] MEDS ORDERED: DORYX MPC120 MG PO (10:05)
[2020-11-20] MEDS ORDERED: EPOGEN20000 UNI2 (10:06)
[2020-11-20] MEDS ORDERED: LISINOPRIL5 MG PO (10:07)
[2020-11-20 10:17] VITALS: BP 139/104
[2020-11-20 10:54] VITALS: BP 171/114
[2020-11-20] MEDS ORDERED: CLONIDINE HCL0.1 MG PO (13:45)
[2020-11-20 15:00] VITALS: BP 172/102
--- NOTE | 2020-11-20 19:17 | NUR ---
Pt admitted from ER this am; has been staying at [facility]. BP 170s/100s. Afebrile. States he is dialysis pt Tues, Thurs, and Sat. Reports pain to rectum after BM. States intermittent and can feel a "bump." Small protrusion noted at lower end of anal sphincter, no discoloration noted. States he takes ointment for it. Reports he had hemorrhoid surgery last year and this happens periodically. TASH shunt positive for thrill and bruit. Will continue to monitor.
[2020-11-20 19:55] VITALS: BP 181/110
--- NOTE | 2020-11-21 00:16 | NUR ---
Q6 TROP REDRAW RESULTED IN 0.97. CALLED BALANCE WEIGHER WITH RESULTS. NO NEW ORDERS RECEIVED.
[2020-11-21 03:40] VITALS: BP 178/105
--- NOTE | 2020-11-21 05:57 | NUR ---
PT VSS OVERNIGHT. PT HAD COMPLAINTS OF COUGH, RX FOR TESSON PEARLS ORDERED. ACHIEVED GOOD RESULTS. ALSO GOT HEMORRHOID CREAM FOR PT. CALLED IN CONSULT TO RENAL. 1ST COVID PCR CAME BACK NEGATIVE. NEW ORDER PLACED FOR 2ND COVID PCR AT 10:00, PT IS COMING FROM [facility].
[2020-11-21 07:42] VITALS: BP 187/110
--- NOTE | 2020-11-21 07:42 | NUR ---
ASSUMED CARE OF PT AT SHIFT CHANGE, DIALYSIS NURSE HERE THIS MORNING. ORDERS FOR DIALYSIS REC'D. PT HAS NO CONCERNS. STATES CHEST PAIN IS THE SAME THAT IT WAS YESTERDAY. DENIES OTHER PAIN.
--- NOTE | 2020-11-21 10:13 | NUR ---
SECOND COVID SWAB COLLECTED AND SENT TO LAB
--- NOTE | 2020-11-21 11:13 | NUR ---
Met with patient he is rec dialysis at this time. Patient A/Ox4. He has been at [facility] for 3 weeks from [facility]. [facility]. Plan return once stable. Sp with Candis at [facility] and his sister updated on care. DC brand planner to fax updates. Patients COVID Neg November 20, ovidio covid pending.
--- NOTE | 2020-11-21 12:51 | NUR ---
PAGED DR QURESHI RE: ELEVATED TROPONIN
--- NOTE | 2020-11-21 12:55 | NUR ---
FAXED CLINICAL UPDATE TO [facility] OF RECEIVED CONFIRMATION AND LEFT MSG WITH DOMINGO IN ADM.
[2020-11-21 15:13] VITALS: BP 191/112
--- NOTE | 2020-11-21 18:36 | NUR ---
PT INQUIRED IF HE COULD LEAVE THE HOSPITAL TO GO TO THE BANK. INFORMED PT THAT PT WOULD HAVE TO BE DISCHARGED FIRST OR LEAVE AMA. PT CHOOSING TO STAY IN HOSPITAL AT THIS TIME AND HANDLE BANK LATER.
[2020-11-21 20:00] VITALS: BP 165/116
[2020-11-21 20:06] VITALS: BP 165/116
[2020-11-22 08:00] VITALS: BP 190/100
--- NOTE | 2020-11-22 08:05 | NUR ---
PROGRESS PT A/O X4 UP AD SHAAN. REPORTED BACK PAIN AND CHEST PAIN FROM COUGHING THAT WAS RELIEVED WITH HYDROCODONE X1. DENIED NEED FOR ANY MIKA PAIN MEDICATION SLEPT ON AND OFF BUT PT SAYS HE IS A NIGHT PERSON SO DID NOT SLEEP VERY LONG. TOLERATING DIET TAKIG FLUIDS IN MODERATION. TASH AV FISTULA WITH GOOD BRUIT AND TRILL HAD DIALYSIS EARLIER 11/21 BP RUNNING HIGH HAS PRN HYDRALAZINE FOR SYSTOLIC ABOVE 180.
[2020-11-22] MEDS ORDERED: LEVOFLOXACIN250 MG PO (09:14)
[2020-11-22 12:29] VITALS: BP 176/100
--- NOTE | 2020-11-22 14:41 | NUR ---
SW reviewed chart and spoke with nursing and attending physician. Pt was ready for discharge back to [facility] today. Pt with episode of chest pain. Discharge cancelled. Cardiology consulted. Pt will have dialysis tomorrow prior to discharge. JOSHUA updated [facility] post-acute liaison. capacity planner to prepare weekend discharge. JOSHUA is following to assist as needed with discharge planning.
--- NOTE | 2020-11-22 14:53 | NUR ---
FAXED DISCHARGE ORDERS, SUMMARY AND NEGATIVE COVID RESULTS (11/20 & 11/21) TO [facility]. CONFIRMED WITH DOMINGO/LIAISON THAT THEY RECEIVED. SHE ARRANGED TRANSPORTATION BETWEEN 4:00-4:30. PATIENT'S SISTER NOTIFIED. CHART COPY COMPLETED. FLOW SHEETS AND SUMMARY FAXED TO [facility]. [facility] P [phone]; FAX [phone] [facility] P [phone]; FAX [phone]
[2020-11-22 15:59] VITALS: BP 160/90
--- NOTE | 2020-11-22 16:19 | NUR ---
RN ASSUMED PT'S CARE AT 0700AM, PT IS A&OX3, PT'S COUGHING HAS IMPROVED, PT DENIES SOB, RN HAS CALLED DR TO REPORT PT'S HIGH TROPONIN AND BP, CARDIOLOGY DR HAS SEEING PT, PT HAS STARTED NEW MEDICATONS FOR HIGH BP, RN RECEIVED ORDER TO DC PT TO [facility], RN HAS DIVING NURSE REPORT , TRANSPORTATION PRINTING TECHNICIAN THE PT AT 1610PM.
== END 2020-11-22 16:10 | DRG 193 ==
LOC: ER 07:10 → EROBS 09:15 → 3W 09:15
PROVIDERS: Emergency Medicine; ADMIT Hospitalist; ATTEND Hospitalist
DX: J18.9 Pneumonia, unspecified organism (principal); N18.6 End stage renal disease; I12.0 Hypertensive chronic kidney disease with stage 5 chronic kidney disease or end stage renal disease; I16.0 Hypertensive urgency; E78.5 Hyperlipidemia, unspecified; Z20.822 Contact with and (suspected) exposure to COVID-19; R07.89 Other chest pain; I25.10 Atherosclerotic heart disease of native coronary artery without angina pectoris; Z86.718 Personal history of other venous thrombosis and embolism; Z79.899 Other long term (current) drug therapy; Z71.6 Tobacco abuse counseling; Z88.0 Allergy status to penicillin; Z82.49 Family history of ischemic heart disease and other diseases of the circulatory system; Z95.5 Presence of coronary angioplasty implant and graft; Z79.82 Long term (current) use of aspirin; Z86.73 Personal history of transient ischemic attack (TIA), and cerebral infarction without residual deficits
CPT/HCPCS: 10879; 32100

== ENCOUNTER 2021-02-03 06:07 | Inpatient (IN) | payer OTHER ==
[~2021-02-03] VITALS: Ht 180.3 cm; Wt 70.5 kg
[~2021-02-03 06:07] MED LIST changes: +ALBUTEROL2.5 MG/31 INH; +CATAPRES-TTS 31 EAC1 TRANSDERM; +CLONIDINE HCL0.1 MG PO; +CLONIDINE HCL0.3 M3 PO; +DORYX MPC120 MG PO; +EPOGEN20000 UNI2; +GLYCOLAX119 GM PO; +KEPPRA 500 MG500 MG PO; +KEPPRA XR500 MG PO; +LEVOFLOXACIN250 MG PO; +LIPITOR40 MG PO; +LISINOPRIL5 MG PO; +NEPHRO-VITE RX1 TA1 PO; +PROSCAR 5MG TABL5 M1 PO; +RENVELA800 MG PO; +TRAMADOL 50 MG50 MG PO; +ZOLOFT50 M1 PO
[2021-02-03 06:12] VITALS: BP 163/100
[2021-02-03] MEDS ORDERED: TYLENOL325 M1 PO (06:27)
[2021-02-03] MEDS ORDERED: NEURONTIN100 MG PO (06:29)
[2021-02-03] MEDS ORDERED: DORYX MPC120 MG PO (06:29)
[2021-02-03] MEDS ORDERED: LOPERAMIDE2 MG PO (06:30)
[2021-02-03] MEDS ORDERED: PERCOCET 5-3251 EACH PO (06:31)
[2021-02-03 06:33] LABS: ABSOLUTE NEUTROPHILS 5.6 thou/uL (1.4-8.2); BASOPHILS 0.2 % (0.0-2.0); EOSINOPHILS 4.8 % (0.0-3.0); HEMATOCRIT 23.6 % (42.0-52.0); HEMOGLOBIN 7.6 gm/dL (14.0-18.0); LYMPHOCYTES 16.5 % (24.0-44.0); MCH 28.8 pg (26.0-34.0); MCHC 32.1 g/dL (28.0-37.0); MCV 89.8 fL (80.0-100.0); MONOCYTES 6.8 % (1.0-8.0); PLATELET COUNT 123 thou/uL (150-400); POLYS 71.7 % (36.0-66.0); RBC 2.63 mil/uL (4.50-6.00); RDW 17.8 % (10.5-14.5); WBC 7.9 thou/uL (4.0-11.0)
[2021-02-03 06:41] LABS: CALCIUM 8.8 mg/dL (8.5-10.1); CREATININE 11.6 mg/dL (0.7-1.3); POTASSIUM 4.6 mmol/L (3.5-5.1)
[2021-02-03 06:50] LABS: ALBUMIN 2.9 g/dL (3.4-5.0); TOTAL BILIRUBIN 0.5 mg/dL (0.2-1.0); TOTAL PROTEIN 7.2 g/dL (6.4-8.2)
[2021-02-03 06:52] LABS: TROPONIN-I 0.6 ng/mL (<0.06)
--- NOTE | 2021-02-03 07:24 | EKG ---
[place] [address] [facility] [place] [address] ELECTROCARDIOGRAM REPORT Name: TRAVISJOSE MONROE [id number] Admission: 02/03/21 Attend Phys: Discharge: Date of : 60 Report #: [id number] [facility] ED Test Date: 2021-02-03 Test Time: 06:19:02 Pat Name: JOSE ROBLES Department: Room: Gender: M Banking Officer: darian : 1960 Requested By: Noble Macias Order Number: [id number] MD: Juarez Louis Measurements Intervals [place] Rate: 62 P: 50 NJ: 150 QRS: 57 QRSD: 89 T: 68 QT: 472 QTc: 480 Interpretive Statements Sinus rhythm Probable left atrial enlargement Probable left ventricular hypertrophy Borderline T abnormalities, lateral leads Borderline prolonged QT interval Compared to ECG 11/20/2020 07:16:21 No significant changes Electronically Signed On 02-03-2021 7:24:18 CDT by Juarez Louis [email or web address] <ELECTRONICALLY SIGNED> By: Juarez Louis MD, [facility] 02/03/2124 8 8 Juarez Louis MD, FACC /EPI
[2021-02-03 07:29] VITALS: BP 159/106
[2021-02-03 08:04] VITALS: BP 159/91
[2021-02-03 08:25] VITALS: BP 170/109
[2021-02-03 11:03] LABS: ALBUMIN 2.9 g/dL (3.4-5.0); TOTAL PROTEIN 7.1 g/dL (6.4-8.2); TROPONIN-I 0.52 ng/mL (<0.06)
[2021-02-03 11:25] LABS: % SATURATION 16 % (20-39); IRON 25 ug/dL (65-175); TIBC 158 ug/dL (250-450)
--- NOTE | 2021-02-03 11:46 | NUR ---
RECEIVED PT FROM ED. ADMISSION COMPLETED. PT IS AXOX4, PLEASANT. VS BP 170/109, RX AMLODIPINE AND HYDRALZINE ADMINISTERED. AFEBRILE, SR ON MONITOR. PT IS DIALYSIS PT //WED; L UPPER ARM FISTULA. DR SHANKS CONSULTED, NEPHRO CONSULTED, CARDIOLOGY CONSULTED. PT TO RESTART DIALYSIS PER NEPHRO. FALL PRECAUTIONS IN PLACE; NO CONCERNS AT THIS TIME.
--- NOTE | 2021-02-03 11:52 | NUR ---
met with patient who admits with CP. Patient resides at [facility]. Patient reports plan to return to facility at discharge. He reports facility [place]. Patient discussed his past hx of selling drugs and care at facility. [facility], , [facility]. Faxed clinical information and updated facility. Casemgt following.
--- NOTE | 2021-02-03 18:44 | NUR ---
ADMITTED THIS PATIENT FROM EMERGENCY, CONSICOUS AND ORIENTED.ON ROOM AIR BREATHING SPONTANEOUSLY.NOT IN PAIN OR DISTRESS.WITH AV FISTULA ATV LEFT ARM INTACT.HAS ABDOMINAL DISTENTION, CT SCAN OF ABDOMEN AND PELVIS DONE TODAY SHOWING NO SIGNS OF ENTERITIS OR COLITIS.ALL NEEDS ATTENDED.
[2021-02-03 20:03] VITALS: BP 191/116
[2021-02-03 20:18] VITALS: BP 164/115
[2021-02-04 00:02] VITALS: BP 147/95
[2021-02-04 03:45] VITALS: BP 178/116
[2021-02-04 03:52] LABS: HEMATOCRIT 22.1 % (42.0-52.0); HEMOGLOBIN 7.2 gm/dL (14.0-18.0); MCH 28.8 pg (26.0-34.0); MCHC 32.4 g/dL (28.0-37.0); MCV 88.8 fL (80.0-100.0); RBC 2.49 mil/uL (4.50-6.00); RDW 17.3 % (10.5-14.5); WBC 6.1 thou/uL (4.0-11.0)
[2021-02-04 04:37] LABS: CALCIUM 8.5 mg/dL (8.5-10.1); MAGNESIUM 1.8 mg/dL (1.8-2.4); POTASSIUM 5.1 mmol/L (3.5-5.1)
--- NOTE | 2021-02-04 05:17 | NUR ---
ASSESSMENT DOCUMENTED.PT BEEN RESTING IN NO ACUTE DISTRESS.A/OX4.PT HYPERTENSIVE,PT STATES THIS IS NORMAL FOR HIM,HE RUNS HIGH ON HIS BLOOD PRESSURE.DENIES ANY OTHER SX W/HIGH BLOOD PRESSURE.MEDS GIVEN ORDERED.DENIES N/V OR PAIN.PT HOPING TO HAVE DIALYSIS EARLY IN THE MORNING TODAY.PT DENIES ANY CONCERNS AT THIS TIME.WILL CONT TO MONITOR.
--- NOTE | 2021-02-04 08:37 | NUR ---
ASSUMED PT CARE AT 0700, PT BEING SET UP FOR DIALYSIS, ASSESSMENT PERFORMED CHARTED. DIALYSIS NURSE STATES TO HOLD MEDS FOR THIS MORNING UNTIL AFTER DIALYSIS IS FINISHED. PT VOICES NO CONCERNS AT THIS TIME. VSS. WILL CONTINUE TO MONITOR AND FOLLOW POC.
--- NOTE | 2021-02-04 12:10 | NUR ---
PTS MEDICATIONS GIVEN, ASSESSMENT UNCHANGED, DIALYSIS COMPLETE WITH REMOVING 3L OFF PATIENT. VSS. WILL CONTINUE TO MONITOR.
[2021-02-04 13:38] VITALS: BP 154/102
[2021-02-04 15:05] VITALS: BP 149/102
[2021-02-04 19:15] VITALS: BP 150/95
[2021-02-05 00:30] VITALS: BP 146/72
--- NOTE | 2021-02-05 03:22 | NUR ---
PT WAS VERY IRRITABLE AND AGITATED AT BEGINNING OF SHIFT. HE REQUESTED NURSING STAFF ORDER HIM TACO MCCULLOUGH OR SOME OTHER FAST FOOD. PT WAS REMINDED THAT HE IS ON A CARB CONTROL DIET AND SHOULD HAVE LOW SODIUM INTAKE WELL. PT DID NOT WANT ANY OF THE FOOD [facility]ER[facility] TO [facility]. PT BECAME FRUSTRATED AND INITIALLY REFUSED NURSING ASSESSMENT AND BEDTIME MEDICATIONS. HE STATED HE WANTED TO LEAVE THE HOSPITAL. PT WAS GIVEN TIME TO CALM DOWN AND HE LATER AGREED TO TAKE HIS BEDTIME MEDICATIONS. HE HAS SINCE BEEN COOPERATIVE WITH NURSING CARES. SBP 140S-150S. PROGRESSING SLOWLY TOWARD POC GOALS. WILL CONTINUE TO MONITOR FURTHER.
[2021-02-05 04:02] VITALS: BP 148/89
[2021-02-05 05:22] LABS: HEMATOCRIT 21.7 % (42.0-52.0); HEMOGLOBIN 7.2 gm/dL (14.0-18.0); MCH 29.3 pg (26.0-34.0); MCHC 33.1 g/dL (28.0-37.0); MCV 88.5 fL (80.0-100.0); RBC 2.45 mil/uL (4.50-6.00); RDW 17.3 % (10.5-14.5); WBC 5.8 thou/uL (4.0-11.0)
[2021-02-05 05:59] LABS: CALCIUM 8.9 mg/dL (8.5-10.1); MAGNESIUM 1.8 mg/dL (1.8-2.4); POTASSIUM 4.3 mmol/L (3.5-5.1)
[2021-02-05 06:09] LABS: CREATININE 6.7 mg/dL (0.7-1.3)
[2021-02-05 07:21] VITALS: BP 155/77
[2021-02-05 11:57] VITALS: BP 160/85
--- NOTE | 2021-02-05 12:01 | NUR ---
FAXED CLINICAL UPDATES TO [facility]. WILL CONFIRM WITH DOMINGO/ LIAISON THAT THEY RECEIVED. [facility] P [phone]; FAX [phone]
--- NOTE | 2021-02-05 17:23 | NUR ---
cont to update gilbert Sanguine. Patient cont to plan return but eventually wants to move to affordable housing. Sp with sister to alert of role of casemgt. She confirms plan to find affordable housing. Printed information for patient to return to facility and review. Casemgt following.
[2021-02-05 17:38] VITALS: BP 155/83
[2021-02-05 20:15] VITALS: BP 106/62; BP 143/88
[2021-02-06 01:05] VITALS: BP 162/95
--- NOTE | 2021-02-06 03:32 | NUR ---
PT RESTED WELL THE MAJORITY OF THE NIGHT WITH NOTED NON CARDIOGENIC CHEST PAIN, DUE TO INCREASED COUGHING. MEDICATION GIVEN WITH NOTABLE RELIEF. PATIENT UP ADLIB WITH STEADY GAIT. WORKING ON POC FOR THE NIGHT. WILL CONTINUE TO MONITOR.
[2021-02-06 03:50] VITALS: BP 153/100
[2021-02-06 05:14] LABS: HEMATOCRIT 21.5 % (42.0-52.0); HEMOGLOBIN 7.1 gm/dL (14.0-18.0); MCH 29.2 pg (26.0-34.0); MCV 88.3 fL (80.0-100.0); RBC 2.44 mil/uL (4.50-6.00); RDW 17.3 % (10.5-14.5); WBC 6.3 thou/uL (4.0-11.0)
[2021-02-06 05:46] LABS: CALCIUM 8.7 mg/dL (8.5-10.1); MAGNESIUM 1.8 mg/dL (1.8-2.4); POTASSIUM 4.9 mmol/L (3.5-5.1)
[2021-02-06 06:12] LABS: CREATININE 8.5 mg/dL (0.7-1.3)
[2021-02-06 07:30] VITALS: BP 161/99
[2021-02-06 11:30] VITALS: BP 149/98
[2021-02-06 11:49] VITALS: BP 149/98
--- NOTE | 2021-02-06 12:57 | NUR ---
FAXED CLINICAL UPDATES TO [facility]. RHONDA CONFIRM WITH DOMINGO/ LIAISON THAT THEY RECEIVED. [facility] P [phone]; FAX [phone]
--- NOTE | 2021-02-06 15:31 | NUR ---
AT 1518, PT DISCHARGED IN STABLE CONDITION BACK TO FACILITY VIA W/C BY SUZANNA. ALL PERTINENT PAPERWORK SENT W/ PT.
== END 2021-02-06 15:18 | DRG 205 ==
LOC: ER 06:07 → 2N 07:22 → EROBS 07:22 → 2N 08:05
PROVIDERS: Emergency Medicine; ADMIT Internal Medicine; ATTEND Internal Medicine
PROC: 5A1D70Z Performance of Urinary Filtration, Intermittent, Less than 6 Hours Per Day (ICD-10-PCS; principal; 2021-02-06)
DX: M94.0 Chondrocostal junction syndrome [Tietze] (principal); J18.9 Pneumonia, unspecified organism; N18.6 End stage renal disease; E46 Unspecified protein-calorie malnutrition; I12.0 Hypertensive chronic kidney disease with stage 5 chronic kidney disease or end stage renal disease; Z20.822 Contact with and (suspected) exposure to COVID-19; D63.1 Anemia in chronic kidney disease; F17.210 Nicotine dependence, cigarettes, uncomplicated; R07.89 Other chest pain; D69.6 Thrombocytopenia, unspecified; K21.9 Gastro-esophageal reflux disease without esophagitis; F15.90 Other stimulant use, unspecified, uncomplicated; Z86.73 Personal history of transient ischemic attack (TIA), and cerebral infarction without residual deficits; Z88.0 Allergy status to penicillin; Z99.2 Dependence on renal dialysis; Z79.82 Long term (current) use of aspirin; Z79.899 Other long term (current) drug therapy; Z71.6 Tobacco abuse counseling; Z86.718 Personal history of other venous thrombosis and embolism; Z68.21 Body mass index [BMI] 21.0-21.9, adult; Z82.49 Family history of ischemic heart disease and other diseases of the circulatory system
CPT/HCPCS: 10081; 32100

== ENCOUNTER 2021-02-26 16:02 | Inpatient (IN) | payer OTHER ==
[~2021-02-26] VITALS: Ht 180.3 cm; Wt 71.3 kg
--- NOTE | ~2021-02-26 | EMS ---
[address] [address] EMS Patient Care Report Name: JOSE ROBLES Room #: 207-P [facility] IN ..#: [id number] Admission: 02/26/21 Attend Phys: Larry Major MD Discharge: 03/04/21 Date of : 60 Report #: [id number] THIS REPORT FOR: //name// Report Transmitted: 03/04/2021 14:33 EMS Care Summary [place], [place]/[facility] Incident [id number] @ 02/26/2021 15:25 Incident [address] [place] [address] Patient JOSE ROBLES Male, 60 Years 1960 Patient Address [address] [place] [id number] Patient History Chronic Obstructive Pulmonary Disease (COPD),Hypertension (HTN),Smoking,Stroke/CVA,Hyperlipidemia,Gastro-Esophageal Reflux Disease (GERD),Depression,Dialysis,Chronic Kidney Disease, Patient Allergies Penicillin allergy, Patient Medications Pantoprazole, Doxycycline, Levetiracetam, Midodrine, Hydrocodone, Sertraline, Atorvastatin, Hydralazine, Chief Complaint Abdominal pain Disposition Transported No Lights/[place] Dispatch Reason Abdominal Pain/Problems Transported To [facility] [address] [place] [address] EMS Patient Care Report Name: JOSE ROBLES Room #: 207-P [facility] IN .Ruthy.#: [id number] Admission: 02/26/21 Attend Phys: Larry Major MD Discharge: 03/04/21 Date of : 60 Report #: [id number] M42 arrived to a 24 hour care facility to find the pt laying down in his bed complaining of abdominal pain of 7 out of 10. The pt called 911 and has a history of doing so against the will of the nursing staff. There was no deformity or discoloration to the abdomen which was panful to touch. M42 and P28 assisted the pt onto the cot and into the unit for transport to hospital without change in condition. M42 arrived and transferred care to hospital staff. Initial Vitals @15:46P: 62,R: 14,BP: 158/86,Pain: 6/10,GCS: 15,CO: 4,SpO2: 93,Revised Trauma: 12, @15:41P: 63,R: 16,BP: 150/96,Pain: 6/10,GCS: 15,CO: 0,SpO2: 92,Revised Trauma: 12, Assessments @15:40MENTAL:No Abnormalities,SKIN:No Abnormalities,HEENT:Head/Face: No Abnormalities,Eyes: No Abnormalities,Neck/Airway: No Abnormalities,LUNG SOUNDS:General: No Abnormalities,Left Upper: No Abnormalities,Right Upper: No Abnormalities,Left Lower: No Abnormalities,Right Lower: No Abnormalities,ABDOMEN:General: No Abnormalities,Left Upper: No Abnormalities,Right Upper: No Abnormalities,Left Lower: No Abnormalities,Right Lower: No Abnormalities,PELVIS//GI:No Abnormalities,EXTREMITIES:Left Arm: No Abnormalities,Right Arm: No Abnormalities,Left Leg: No Abnormalities,Right Leg: No Abnormalities,PULSE:NEURO:No Abnormalities,@15:55MENTAL:No Abnormalities,SKIN:No Abnormalities,HEENT:Head/Face: No Abnormalities,Eyes: No Abnormalities,Neck/Airway: No Abnormalities,LUNG SOUNDS:General: No Abnormalities,Left Upper: No Abnormalities,Right Upper: No Abnormalities,Left Lower: No Abnormalities,Right Lower: No Abnormalities,ABDOMEN:General: No Abnormalities,Left Upper: No Abnormalities,Right Upper: No Abnormalities,Left Lower: No Abnormalities,Right Lower: No Abnormalities,PELVIS//GI:No Abnormalities,EXTREMITIES:Left Arm: No Abnormalities,Right Arm: No Abnormalities,Left Leg: No Abnormalities,Right Leg: No Abnormalities,PULSE:NEURO:No Abnormalities, Impression Abdominal Pain Procedures @15:40ALS AssessmentResponse: UnchangedSucceeded Timeline 15:23,Call Received 15:23,Dispatch Notified 15:25,Dispatched 15:25,En Route 15:36,[place] [address] EMS Patient Care Report Name: JOSE ROBLES Room #: 207-P [facility]#: [id number] Admission: 02/26/21 Attend Phys: Larry Major MD Discharge: 03/04/21 Date of : 60 Report #: [id number] 15:40,At Patient 15:40,ALS Assessment,Response: UnchangedSucceeded, 15:41,BP: 150/96 M,PULSE: 63,RR: 16 R,SPO2: 92 Ox,ETCO2: ,BG: ,PAIN: 6,GCS: 15, 15:44,Depart Scene 15:46,BP: 158/86 M,PULSE: 62,RR: 14 R,SPO2: 93 Ox,ETCO2: ,BG: ,PAIN: 6,GCS: 15, 15:55,At Destination 16:11,Call Closed Disclaimer v1.1 Copyright 2020 [employer] This EMS Care Summary contains data elements from the applicable legal record (which may be displayed differently). It is designed to provide pertinent information for the following purposes: continuity of care, clinical quality, and state data reporting. The complete legal record is available to ED staff and administrators of the receiving hospital in [employer] Patient Tracker. All data is provided "as is."
[~2021-02-26 16:02] MED LIST changes: +LOPERAMIDE2 MG PO; +NEURONTIN100 MG PO; +PERCOCET 5-3251 EACH PO; +TYLENOL325 M1 PO
[2021-02-26 16:03] VITALS: BP 139/91
[2021-02-26 17:21] LABS: ABSOLUTE NEUTROPHILS 6.3 thou/uL (1.4-8.2); BASOPHILS 1.2 % (0.0-2.0); EOSINOPHILS 5.2 % (0.0-3.0); HEMATOCRIT 24.6 % (42.0-52.0); LYMPHOCYTES 11.3 % (24.0-44.0); MCH 29.1 pg (26.0-34.0); MCHC 32.4 g/dL (28.0-37.0); MONOCYTES 5.9 % (1.0-8.0); PLATELET COUNT 140 thou/uL (150-400); POLYS 76.4 % (36.0-66.0); RBC 2.73 mil/uL (4.50-6.00); RDW 16.5 % (10.5-14.5); WBC 8.2 thou/uL (4.0-11.0)
[2021-02-26 17:36] LABS: CALCIUM 8.6 mg/dL (8.5-10.1); CREATININE 12.3 mg/dL (0.7-1.3); POTASSIUM 4.9 mmol/L (3.5-5.1)
[2021-02-26 17:42] LABS: ALBUMIN 3.1 g/dL (3.4-5.0); TOTAL BILIRUBIN 0.4 mg/dL (0.2-1.0); TOTAL PROTEIN 6.9 g/dL (6.4-8.2)
[2021-02-26 19:46] LABS: URINE BILIRUBIN NEGATIVE (Negative); URINE BLOOD TRACE (Negative); URINE CLARITY CLEAR; URINE COLOR YELLOW; URINE GLUCOSE-RANDOM* TRACE (Negative); URINE KETONES NEGATIVE (Negative); URINE LEUKOCYTES-REFLEX NEGATIVE (Negative); URINE NITRITE-REFLEX NEGATIVE (Negative); URINE PROTEIN (DIPSTICK) 2+ (Negative); URINE UROBILINOGEN 0.2 E.U./dl (0.2-1.0)
[2021-02-26 19:55] LABS: BACTERIA-REFLEX None Seen /HPF (None Seen); CRYSTALS None Seen /LPF (None Seen); SQUAMOUS None Seen /LPF (0-3); URINE RBC None Seen /HPF (NONE SEEN); URINE WBC-REFLEX 0-5 Rare /HPF (0-5)
[2021-02-26 23:47] VITALS: BP 158/95
[2021-02-27 00:22] VITALS: BP 158/95
[2021-02-27 00:42] VITALS: BP 159/100
[2021-02-27 04:05] VITALS: BP 148/87
--- NOTE | 2021-02-27 04:05 | NUR ---
PT ARRIVED ONTO UNIT AT 0030 VIA WC, WITH IV IN PLACE. PT IS A/O X 4. ASSESSMENT COMPLETED NOTED. PT HAD DRESSED WOUND ON LEFT POSTERIOR FOOT,PICTURES IN CHART. FOOT LEFT OPEN TO AIR. PT C/O NON CARDIAC CHEST PAIN D/T COUGHING AND ABDOMINAL PAIN. MEDICATION GIVEN TO ASSIST WITH PAIN, WITH PARTIAL RELIEF. PT IS PLACED IN SEIZURE PRECAUTIONS, ALONG WITH FALL PRECAUTIONS, PT STATES UNDERSTANDING OF EDUCATION PERTAINING TO BEFORE MENTIONED PRECAUTIONS. BED IS IN LOWEST POSITION, SIDE RAILS PADED, CALL LIGHT IN REACH. PT IS WITHOUT NEEDS AT THIS TIME. WILL CONTINUE TO WORK TOWARDS POC.
[2021-02-27 07:41] VITALS: BP 146/82
[2021-02-27 11:07] LABS: CALCIUM 8.4 mg/dL (8.5-10.1); POTASSIUM 4.2 mmol/L (3.5-5.1)
[2021-02-27 11:08] LABS: CREATININE 7.8 mg/dL (0.7-1.3)
--- NOTE | 2021-02-27 15:04 | NUR ---
Case opened to follow for [place] planning. Pt comes from [facility] where he has lived for the past couple of months. He went there for skilled rehab and transitioned to jail care. His sister Felicita is his emergency contact. The facility indicates the pt does not have a DPOA /or AD on file. He was not feeling well on 02/25 and refused to go to dialysis. He normally dialyzes on t-th-sat at [facility]. He is being treated for pneumonia and dialyzed today. Therap evals requested. Pt is normally up with supervision at the [facility]. He does have skilled medicare days if rehab is needed at [facility]. Clinical updated faxed to Candis the [place] liason. They are holding his bed. The pt has contacted his sister and she is aware that he is here. Will follow along and assist with his return to the [facility] at [facility].
[2021-02-27 15:28] VITALS: BP 165/98
--- NOTE | 2021-02-27 18:18 | NUR ---
RECEIVED THE PATIENT CONSCIOUS AND ORIENTED.ON ROOM AIR BREATHING SPONTANEOUSLY.NOT IN PAIN OR DISTRESS.WITH AV FISTULA AT LEFT HAND INTACT.HEMODIALYSIS DONE TODAY 3LITERS FLUID REMOVED.ALL NEEDS ATTENDED.
[2021-02-27 19:26] VITALS: BP 151/88
[2021-02-27 22:06] LABS: HEP B SURFACE Ab(ANTI-HBS Reactive (()); HEPATITIS B SURFACE AG Negative (Negative)
[2021-02-28] VITALS (8 sets, daily range): BP systolic 101–192; BP diastolic 78–97
--- NOTE | 2021-02-28 15:45 | NUR ---
Possible dc back to ltc at [facility] this weekend. They can accept for readmission. [facility]end staff will need to call their liason at [phone] to arrange for transport and report. They will need dc summary and instructions faxed as well as a chart copy sent with the pt. Pt's dialysis clinic will need to be notified for resumption next Wednesday by calling [phone] and fax dc summary to [phone]. Please confirm dc time with his sister as well.
[2021-03-01] VITALS (7 sets, daily range): BP systolic 149–196; BP diastolic 103–118
[2021-03-02] VITALS (7 sets, daily range): BP systolic 156–190; BP diastolic 86–130
[2021-03-02 06:03] LABS: ABSOLUTE NEUTROPHILS 3.9 thou/uL (1.4-8.2); BASOPHILS 1.3 % (0.0-2.0); EOSINOPHILS 4.3 % (0.0-3.0); HEMATOCRIT 22.5 % (42.0-52.0); HEMOGLOBIN 7.3 gm/dL (14.0-18.0); LYMPHOCYTES 16.1 % (24.0-44.0); MCHC 32.5 g/dL (28.0-37.0); MCV 89.4 fL (80.0-100.0); MONOCYTES 6.6 % (1.0-8.0); PLATELET COUNT 113 thou/uL (150-400); POLYS 71.7 % (36.0-66.0); RBC 2.52 mil/uL (4.50-6.00); RDW 16.3 % (10.5-14.5); WBC 5.5 thou/uL (4.0-11.0)
[2021-03-02 06:19] LABS: ALBUMIN 2.9 g/dL (3.4-5.0); CALCIUM 8.2 mg/dL (8.5-10.1); MAGNESIUM 1.6 mg/dL (1.8-2.4); PHOSPHORUS 3.8 mg/dL (2.6-4.7); POTASSIUM 4.6 mmol/L (3.5-5.1); TOTAL BILIRUBIN 0.5 mg/dL (0.2-1.0); TOTAL PROTEIN 7.3 g/dL (6.4-8.2)
[2021-03-02 06:21] LABS: CREATININE 5.9 mg/dL (0.7-1.3)
[2021-03-02 16:57] LABS: HEMATOCRIT 24.8 % (42.0-52.0); HEMOGLOBIN 8.1 gm/dL (14.0-18.0)
--- NOTE | 2021-03-02 19:01 | NUR ---
PT CARE ASSUMED AT 0700. ASSESSMENTS CHARTED. MEDICATIONS CHARTED. RFA IV. SINUS RHYTHM. STAND-BY ASSIST. TOILET. SEIZURE PRECAUTIONS. DIET: RENAL. FLUID RESTRICTION: 1500. 1 UNIT RBC GIVEN. DIALYSIS: [facility] SAT.
[2021-03-03 04:40] VITALS: BP 197/113
[2021-03-03 06:44] VITALS: BP 176/116
[2021-03-03 08:00] VITALS: BP 181/108
[2021-03-03 08:13] LABS: ABSOLUTE NEUTROPHILS 4.6 thou/uL (1.4-8.2); BASOPHILS 1.1 % (0.0-2.0); EOSINOPHILS 6.2 % (0.0-3.0); HEMATOCRIT 25.1 % (42.0-52.0); HEMOGLOBIN 8.4 gm/dL (14.0-18.0); LYMPHOCYTES 15.2 % (24.0-44.0); MCH 29.8 pg (26.0-34.0); MCHC 33.6 g/dL (28.0-37.0); MCV 88.9 fL (80.0-100.0); MONOCYTES 6.1 % (1.0-8.0); PLATELET COUNT 106 thou/uL (150-400); POLYS 71.4 % (36.0-66.0); RBC 2.83 mil/uL (4.50-6.00); WBC 6.5 thou/uL (4.0-11.0)
[2021-03-03 08:35] LABS: ALBUMIN 3.1 g/dL (3.4-5.0); CALCIUM 9.1 mg/dL (8.5-10.1); MAGNESIUM 1.7 mg/dL (1.8-2.4); PHOSPHORUS 4.9 mg/dL (2.6-4.7); POTASSIUM 4.7 mmol/L (3.5-5.1); TOTAL BILIRUBIN 0.6 mg/dL (0.2-1.0); TOTAL PROTEIN 7.3 g/dL (6.4-8.2)
--- NOTE | 2021-03-03 10:36 | NUR ---
ASSUMMED CARE OF THIS PATIENT FROM THE NIGHT NURSE AT 0700. [address] SCAN AND BACK WITHOUT INCIDENT VIA W/C
[2021-03-03 15:20] VITALS: BP 458/96
[2021-03-03 16:00] VITALS: BP 158/96
--- NOTE | 2021-03-03 16:19 | NUR ---
on-going assessment: CM REVIEWED CHART AND SPOKE WITH ATTENDING. PT WILL LIKELY BE READY TO DISCHARGE TOMORROW BACK TO LTC AT [facility]. PT GETS DIALYSIS T//WED. CM FAXED UPDATED CLINICAL TO THE FACILITY AND NOTIFIED DOMINGO MCKEE IN ADMISSIONS. CM WILL CONTINUE TO FOLLOW.
--- NOTE | 2021-03-03 18:15 | NUR ---
PATIENT IS PROGRESSING TOWARDS OUTCOME GOALS HE IS LESS NAUSEATED. UP AND ABOUT IN THE ROOM WITH A STEADY GAIT. NO SEIZURE ACTIVITY NOTED AND DR DANIEL AWARE AND SEIZURE PRECAUTIONS DC'D.
--- NOTE | 2021-03-03 18:21 | NUR ---
PATIENT IS SLOWLY PROGRESSING TOWARDS OUTCOME GOALS BUT REMAIN DYSPNIC WITH ACTIVITY. LEANING OVER BEDSIDE TABLE. PCXR DONE AND URINE CULTURE SENT TO LAB WBC INCREASED OVERNIGHT. WILL CONTINUE TO MONITOR. XANAX GIVEN FOR ANXIETY. PLEASE REFER TO ASSESSMENTS. PATIENT ENCOURAGED TO PACE ACTIVITY TO ALLOW ADEQUATE REST PERIODS.
[2021-03-03 19:44] VITALS: BP 149/119
[2021-03-04 00:05] VITALS: BP 186/108
[2021-03-04 03:30] VITALS: BP 158/107
--- NOTE | 2021-03-04 04:49 | NUR ---
ASSUMED CARE OF PATIENT AT 1900. BP ELEVATED, TREATED NEEDED. UP AD SHAAN. SLEPT WELL, CALLS OUT APPROPRIATELY. DIALYSIS TODAY, ANTICIPATED DC WELL. PROGRESSING WELL TOWARDS POC GOALS.
--- NOTE | 2021-03-04 12:27 | NUR ---
CARE TEAM INDICATED THAT PT IS MEDICALLY STABLE TO DC BACK TO [facility] THIS DAY. PT HAD DIALYSIS THIS AM AND WILL RESUME SERVICES AT [facility] WEDNESDAY. PT IS AWARE AND AGREEABLE AND CM CALLED AND NOTIFIED PT'S SISTER. HIWOT JOHNSON ARRANGED FOR NETWORK CONTROL SUPERVISOR BETWEEN [phone]. CHART COPY ORDERD. ORDERS TO BE FAXED ONCE COMPLETED.
[2021-03-04] MEDS ORDERED: LEVOFLOXACIN500 MG PO (12:45)
[2021-03-04 13:33] VITALS: BP 164/86
--- NOTE | 2021-03-04 13:37 | NUR ---
PT HAD DIALYSIS TODAY. ORDERS GIVEN TO DISCHARGE PT BACK TO SNF. PT AND FAMILY NOTIFIED.
== END 2021-03-04 13:38 | DRG 177 ==
LOC: ER 16:02 → EROBS 22:47 → 2N 22:47
PROVIDERS: Emergency Medicine; Hospitalist; Internal Medicine; Nurse Practitioner Family; ADMIT Hospitalist; ATTEND Hospitalist
PROC: 30233N1 Transfusion of Nonautologous Red Blood Cells into Peripheral Vein, Percutaneous Approach (ICD-10-PCS; principal; 2021-03-02)
PROC: 5A1D70Z Performance of Urinary Filtration, Intermittent, Less than 6 Hours Per Day (ICD-10-PCS; 2021-03-04)
DX: J15.6 Pneumonia due to other Gram-negative bacteria (principal); N18.6 End stage renal disease; E46 Unspecified protein-calorie malnutrition; I12.0 Hypertensive chronic kidney disease with stage 5 chronic kidney disease or end stage renal disease; K52.9 Noninfective gastroenteritis and colitis, unspecified; G40.909 Epilepsy, unspecified, not intractable, without status epilepticus; K21.9 Gastro-esophageal reflux disease without esophagitis; F17.210 Nicotine dependence, cigarettes, uncomplicated; R60.1 Generalized edema; D63.8 Anemia in other chronic diseases classified elsewhere; E83.39 Other disorders of phosphorus metabolism; Z86.73 Personal history of transient ischemic attack (TIA), and cerebral infarction without residual deficits; I25.2 Old myocardial infarction; Z82.49 Family history of ischemic heart disease and other diseases of the circulatory system; Z88.0 Allergy status to penicillin; Z91.15 Patient's noncompliance with renal dialysis; Z68.21 Body mass index [BMI] 21.0-21.9, adult; Z20.822 Contact with and (suspected) exposure to COVID-19
CPT/HCPCS: 10081; 32100

== ENCOUNTER 2021-04-16 19:16 | Inpatient (IN) | payer OTHER ==
[~2021-04-16] VITALS: Ht 152.4 cm; Wt 69.7 kg
--- NOTE | ~2021-04-16 | EMS ---
[address] [address] EMS Patient Care Report Name: JOSE ROBLES Room #: REG [facility] Tristan#: [id number] Admission: 04/16/21 Attend Phys: Discharge: Date of : 60 Report #: [id number] THIS REPORT FOR: //name// Report Transmitted: 04/16/2021 18:47 EMS Care Summary [place], [place] Incident [id number] @ 04/16/2021 18:44 Incident Location [id number] [place] [address] A Patient TRAVIS GARCIA Male, 60 Years 1960 Patient Address [address] [place] [address] [place] [id number] Patient History Chronic Obstructive Pulmonary Disease (COPD),Dialysis, Chief Complaint abd pain Disposition Transported No Lights/[place] Dispatch Reason Abdominal Pain/Problems Transported To [facility] Narrative pt seated on bedside, a&o. he c/o abd pain near the navel for past week. he skipped dialysis yesterday. he now req eval at [facility]. pt RA 02 sat 69%. he reports that he is supposed to wear 02 but he did not have it on when we picked him up. pt 02 sat increased to 94% w/ 02/NC. transport w/o further change. Initial Vitals @19:10SpO2: 94, [address] [address] EMS Patient Care Report Name: JOSE ROBLES Room #: REG [facility]#: [id number] Admission: 04/16/21 Attend Phys: Discharge: Date of : 60 Report #: [id number] @19:03P: 75,R: 20,BP: 165/91,Pain: 4/10,GCS: 15,Temp: 98.4F,SpO2: 69,Revised Trauma: 12, Assessments @18:54MENTAL:No Abnormalities,SKIN:No Abnormalities,HEENT:Head/Face: No Abnormalities,LUNG SOUNDS:General: Other,ABDOMEN:General: Other,PELVIS//GI:EXTREMITIES:PULSE:Radial: 2+ Normal,NEURO:No Abnormalities, Impression Abdominal Pain Procedures @18:54ALS AssessmentResponse: Unchanged@18:57StretcherResponse: Unchanged@19:04Oxygen FlowRate: 6 Device: Nasal Cannula (NC) Response: Improved Timeline 18:41,Call Received 18:41,Dispatch Notified 18:44,Dispatched 18:46,En Route 18:51,On Scene 18:54,At Patient 18:54,ALS Assessment,Response: Unchanged 18:57,Stretcher,Response: Unchanged 19:02,Depart Scene 19:03,BP: 165/91 M,PULSE: 75,RR: 20 R,SPO2: 69 Ox,ETCO2: ,BG: ,PAIN: 4,GCS: 15, 19:04,Oxygen FlowRate: 6 Device: Nasal Cannula (NC) Response: Improved 19:10,BP: / M,PULSE: ,RR: R,SPO2: 94 Ox,ETCO2: ,BG: ,PAIN: ,GCS: , 19:12,At Destination 19:26,Call Closed Disclaimer v1.1 Copyright 2020 [employer] This EMS Care Summary contains data elements from the applicable legal record (which may be displayed differently). It is designed to provide pertinent information for the following purposes: continuity of care, clinical quality, and state data reporting. The complete legal record is available to ED staff and administrators of the receiving hospital in [employer] Patient Tracker. All data is provided "as is."
[2021-04-16 19:16] VITALS: BP 147/96
[~2021-04-16 19:16] MED LIST changes: +LEVOFLOXACIN500 MG PO
[2021-04-16 19:57] LABS: ABSOLUTE NEUTROPHILS 8.6 thou/uL (1.4-8.2); EOSINOPHILS 0.5 % (0.0-3.0); HEMATOCRIT 22.6 % (42.0-52.0); HEMOGLOBIN 7.2 gm/dL (14.0-18.0); LYMPHOCYTES 6.6 % (24.0-44.0); MCH 29.9 pg (26.0-34.0); MCHC 31.9 g/dL (28.0-37.0); MCV 93.6 fL (80.0-100.0); MONOCYTES 3.1 % (1.0-8.0); PLATELET COUNT 125 thou/uL (150-400); POLYS 88.8 % (36.0-66.0); RBC 2.41 mil/uL (4.50-6.00); RDW 16.6 % (10.5-14.5); WBC 9.7 thou/uL (4.0-11.0)
[2021-04-16 20:16] LABS: ALBUMIN 2.9 g/dL (3.4-5.0); CALCIUM 9.1 mg/dL (8.5-10.1); CREATININE 13.9 mg/dL (0.7-1.3); TOTAL BILIRUBIN 0.5 mg/dL (0.2-1.0); TOTAL PROTEIN 7.3 g/dL (6.4-8.2)
[2021-04-16 20:22] LABS: POTASSIUM 6.3 mmol/L (3.5-5.1)
[2021-04-16 20:37] LABS: HCO3 24.6 mmol/L (22.0-26.0); PCO2 51.8 mmHg (35.0-45.0); PO2 100.9 mmHg (80.0-100.0); sO2 96.9 % (92.0-98.0)
[2021-04-16 20:39] LABS: pH 7.295 (7.360-7.450)
[2021-04-16 21:18] LABS: MAGNESIUM 2.3 mg/dL (1.8-2.4)
[2021-04-17 01:15] VITALS: BP 161/95
--- NOTE | 2021-04-17 06:51 | EKG ---
[place] [address] [facility] [place] [address] ELECTROCARDIOGRAM REPORT Name: JOSE ROBLES Michael Room #: 170-11 ADM IN M.R.#: [id number] Admission: 04/16/21 Attend Phys: Marcos Mann MD Discharge: Date of : 60 Report #: [id number] [facility] ED Test Date: 2021-04-16 Test Time: 19:24:48 Pat Name: JOSE ROBLES Department: Room: 170 Gender: M Rib Knitter: JCHAIFERNANDEZ : 1960 Requested By: Trupti Carranza Order Number: [id number] MD: Juarez Louis Measurements Intervals [place] Rate: 69 P: 51 AL: 133 QRS: 64 QRSD: 75 T: 70 QT: 432 QTc: 463 Interpretive Statements Sinus rhythm Probable left atrial enlargement Borderline T wave abnormalities Compared to ECG 02/03/2021 06:19:02 No significant changes Electronically Signed On 04-17-2021 6:50:56 CDT by Juarez Louis [email or web address] <ELECTRONICALLY SIGNED> By: Juarez Louis MD, [facility] 04/17/21 0650 23 23 Juarez Louis MD, [facility] /EPI
[2021-04-17 07:50] LABS: HEMATOCRIT 22.9 % (42.0-52.0); HEMOGLOBIN 7.2 gm/dL (14.0-18.0); MCH 29.8 pg (26.0-34.0); MCHC 31.6 g/dL (28.0-37.0); MCV 94.3 fL (80.0-100.0); RBC 2.42 mil/uL (4.50-6.00); RDW 17.2 % (10.5-14.5)
[2021-04-17 08:01] LABS: CALCIUM 8.9 mg/dL (8.5-10.1); CREATININE 14.3 mg/dL (0.7-1.3); POTASSIUM 5.5 mmol/L (3.5-5.1)
[2021-04-17 08:43] VITALS: BP 133/86
[2021-04-17 12:31] VITALS: BP 139/84
[2021-04-18] VITALS (7 sets, daily range): BP systolic 162–180; BP diastolic 89–115
[2021-04-18 03:01] LABS: ABSOLUTE NEUTROPHILS 6.4 thou/uL (1.4-8.2); BASOPHILS 1.4 % (0.0-2.0); EOSINOPHILS 1.6 % (0.0-3.0); HEMOGLOBIN 7.8 gm/dL (14.0-18.0); LYMPHOCYTES 6.7 % (24.0-44.0); MCH 30.1 pg (26.0-34.0); MCHC 32.4 g/dL (28.0-37.0); MONOCYTES 4.8 % (1.0-8.0); PLATELET COUNT 131 thou/uL (150-400); POLYS 85.5 % (36.0-66.0); RBC 2.58 mil/uL (4.50-6.00); RDW 16.9 % (10.5-14.5); WBC 7.5 thou/uL (4.0-11.0)
--- NOTE | 2021-04-18 07:33 | NUR ---
ADMITTED THIS PATIENT FROM THE EMERGENCY AROUND 0600AM.ON NASAL CANNUL AT 6LPM, NOT IN PAIN OR DISTRESS.WITH LEFT UPPER ARM AV FISTULA FOR DIALYSIS INTACT.ADMISSION COMPLETED.ALL NEEDS ATTENDED.
--- NOTE | 2021-04-18 11:40 | NUR ---
Case opened to follow for dc planning. Pt is a ltc resident from [facility] who normally dialyzes at [facility] -. He did miss his wednesday dialysis d/t not feeling well. He is his own responsible libertarian but his sister Lidia is his emergency contact. He has been living in the [facility] for some time and is working with their socialworker on sec 8 house/disabled housing for possible return to community living at some point in the future. He is indep with gait and is up ad shayne in the facility. They are holding his bed. He is known to skip dialysis pending how he feels. They can accept him back if ready over the weekend. Weekend staff will need to call the [place] liason to coordinate a ride and fax orders to [phone], report [phone]. His dc instructions and summary will also need to be faxed to his dialysis clinic at [phone].
--- NOTE | 2021-04-18 14:40 | NUR ---
ORDERS RECEIVED FOR PT EVAL AND TREAT. Pt ADMITTED FOR ACUTE RESP FAILURE AND MISSED HD SESSION. Pt FROM LTC AT [facility] FOR LAST FEW MONTHS. TRANSIENT HOME SITUATION; WORKING ON SEC 8/DISABLED HOUSING W/ SW AT FACILITY. USES SPC AND IS UP AD SHAAN AROUND FACILITY. Pt SITTING AT EOB UPON PT ARRIVAL. PER RN AND SHIP SCRAPER Pt HAS BEEN UP WALKING IN ROOM ON HIS OWN. Pt CONFIRMED THIS. POLITELY DECLINED NEED FOR PT SERVICES AT THIS TIME. HOWEVER NOTED SATS TO BE 77% ON RA AND NC LYING NEARBY. NC PLACED BACK ON Pt (WAS SET AT 6L ALREADY) AND SATS QUICKLY UP TO 93% W/ A FEW DEEP BREATHS. POSSIBLE NEED FOR EX OX TEST PRIOR TO D/C. DISCUSSED W/ CASE MGMT. DISCUSSED W/ Pt ABOUT NEED TO KEEP O2 ON AT THIS TIME WHEN MOBILIZING AROUND ROOM; Pt VERBALIZED UNDERSTANDING. ACUTE PT TO SIGN OFF.
--- NOTE | 2021-04-18 16:36 | NUR ---
PT IS AXOX4, PLEASANT. VS ELEVATED BP THROUGHOUT DIALYSIS, AFEBRILE, SR ON THE MONITOR. DIALYSIS COMPLETED THIS AM. PT IS NORMALLY // DIALYSIS PT. ADDL DIALYSIS TO REMOVE EXCESS FLUID. PT HAD 2L REMOVED THIS AM. PT IS ON 6LNC, O2SAT 93%. PT RESTING COMFORTABLY IN BED, SITS UP AT BEDSIDE TO COUGH. PT/OT CONSULTED, STDBY ASST TO TOILET. POC IS TO CONTINUE TO DIALYZE PT WITH EXPECTED RETURN TO SNF. LOW FALL PRECAUTIONS IN PLACE. FREQUENT ROUNDING PT HAS HX OF REMOVING NC AND EKG LEADS.
[2021-04-19 00:20] VITALS: BP 148/83
--- NOTE | 2021-04-19 03:07 | NUR ---
ASSESSMENT COMPLETED. PT REMAINS ON /-WHICH KEEPS HIM COMFORTABLE. HE SOMETIMES TAKES OXYGEN OFF. HE IS SR OM TELEMETRY.PT WAS COMPLAINING AND RESTLESS AT THE START OF SHIFT WORRIED ABOUT HIS BELONGINGS. NOC WENT BY, PT HAS BECOME ALOT CALMER. DENIES PAIN. EDEMA NOTED TO BLE. BP TENDING DOWNWARDS. DENIES ANY GI/ DISCOMFORT.CALL LIGHT WITHIN REACH.
[2021-04-19 04:23] VITALS: BP 139/86
[2021-04-19] MEDS ORDERED: ZITHROMAX500 MG PO (08:55)
[2021-04-19] MEDS ORDERED: CEFUROXIME500 MG PO (08:55)
== END 2021-04-19 12:34 | DRG 193 ==
LOC: ER 19:16 → 2N 21:07 → EROBS 21:07 → 2N 04-18 05:55
PROVIDERS: Nurse Practitioner Family; Physician Assistant; Student in an Organized Health Care Education/Training Program; ADMIT Internal Medicine; ATTEND Internal Medicine
PROC: 5A1D70Z Performance of Urinary Filtration, Intermittent, Less than 6 Hours Per Day (ICD-10-PCS; principal; 2021-04-17)
PROC: 5A09357 Assistance with Respiratory Ventilation, Less than 24 Consecutive Hours, Continuous Positive Airway Pressure (ICD-10-PCS; principal; 2021-04-17)
PROC: 5A1D70Z Performance of Urinary Filtration, Intermittent, Less than 6 Hours Per Day (ICD-10-PCS; 2021-04-18)
PROC: 5A1D70Z Performance of Urinary Filtration, Intermittent, Less than 6 Hours Per Day (ICD-10-PCS; 2021-04-19)
DX: J18.9 Pneumonia, unspecified organism (principal); J96.01 Acute respiratory failure with hypoxia; N18.6 End stage renal disease; J96.02 Acute respiratory failure with hypercapnia; I12.0 Hypertensive chronic kidney disease with stage 5 chronic kidney disease or end stage renal disease; I69.854 Hemiplegia and hemiparesis following other cerebrovascular disease affecting left non-dominant side; E87.5 Hyperkalemia; E78.5 Hyperlipidemia, unspecified; K21.9 Gastro-esophageal reflux disease without esophagitis; N40.0 Benign prostatic hyperplasia without lower urinary tract symptoms; J44.9 Chronic obstructive pulmonary disease, unspecified; D63.8 Anemia in other chronic diseases classified elsewhere; G40.409 Other generalized epilepsy and epileptic syndromes, not intractable, without status epilepticus; F32.9 Major depressive disorder, single episode, unspecified; I25.10 Atherosclerotic heart disease of native coronary artery without angina pectoris; F17.210 Nicotine dependence, cigarettes, uncomplicated; R77.8 Other specified abnormalities of plasma proteins; Z20.822 Contact with and (suspected) exposure to COVID-19; Z79.899 Other long term (current) drug therapy; Z88.0 Allergy status to penicillin; I25.2 Old myocardial infarction; Z99.2 Dependence on renal dialysis
CPT/HCPCS: 10081; 32100

== ENCOUNTER 2021-04-22 05:42 | Emergency (ER) | payer OTHER ==
[~2021-04-22] VITALS: Ht 180.3 cm; Wt 77.1 kg
--- NOTE | ~2021-04-22 | EMS ---
[address] [address] EMS Patient Care Report Name: JOSE ROBLES Room #: DEP SVITLANA Tristan#: [id number] Admission: 04/22/21 Attend Phys: Discharge: 04/22/21 Date of : 60 Report #: [id number] THIS REPORT FOR: //name// Report Transmitted: 04/22/2021 13:52 EMS Care Summary [place], [place]/[facility] Incident [id number] @ 04/22/2021 05:10 Incident Location [address] [place] [address] Patient JOSE ROBLES Male, 60 Years 1960 Patient Address [address] [place] [address] Patient History Chronic Obstructive Pulmonary Disease (COPD),Hypertension (HTN),Smoking,Stroke/CVA,Hyperlipidemia,Gastro-Esophageal Reflux Disease (GERD),Depression,Dialysis,Chronic Kidney Disease, Patient Allergies Penicillin allergy, Patient Medications None Reported, Atorvastatin, Sertraline, Doxycycline, Levetiracetam, Midodrine, Hydralazine, Pantoprazole, Hydrocodone, Chief Complaint abdominal pain Disposition Transported No Lights/[place] Dispatch Reason Sick Person Transported To [facility] [address] [place] [address] EMS Patient Care Report Name: JOSE ROBLES Room #: DEP ER JayeEaston#: [id number] Admission: 04/22/21 Attend Phys: Discharge: 04/22/21 Date of : 60 Report #: [id number] m42 arrived on scene to find a 60 yr male patient walking toward us. He got on the cot and we got in the ambulance. We took a couple sets of vitals and went inroute to the facility where care was transferred to the nurse. Initial Vitals @05:33P: 78,R: 16,BP: 178/102,Pain: 6/10,GCS: 15,Revised Trauma: 12, @05:25P: 85,R: 14,BP: 168/106,Pain: 6/10,GCS: 15,SpO2: 99,Revised Trauma: 12, Assessments @05:21MENTAL:Event Oriented,Place Oriented,Time Oriented,Person Oriented,SKIN:HEENT:Head/Face: No Abnormalities,Eyes: No Abnormalities,LUNG SOUNDS:Right Lower: Tenderness,Left Lower: BRYSON,General: No Abnormalities,Left Upper: No Abnormalities,Right Upper: No Abnormalities,ABDOMEN:Right Lower: Tenderness,Left Lower: BRYSON,General: No Abnormalities,Left Upper: No Abnormalities,Right Upper: No Abnormalities,PELVIS//GI:No Abnormalities,EXTREMITIES:Right Leg: Paralysis,Left Arm: No Abnormalities,Right Arm: No Abnormalities,Left Leg: No Abnormalities,PULSE:NEURO:No Abnormalities, Impression Abdominal Pain Procedures @05:21ALS AssessmentResponse: UnchangedSucceeded@05:22BLS AssessmentResponse: Unchanged Timeline 05:08,Call Received 05:08,Dispatch Notified 05:10,Dispatched 05:12,En Route 05:20,On Scene 05:21,At Patient 05:21,ALS Assessment,Response: UnchangedSucceeded, 05:22,BLS Assessment,Response: Unchanged 05:25,BP: 168/106 M,PULSE: 85,RR: 14 R,SPO2: 99 Ox,ETCO2: ,BG: ,PAIN: 6,GCS: 15, 05:27,Depart Scene 05:33,BP: 178/102 M,PULSE: 78,RR: 16 R,SPO2: Ox,ETCO2: ,BG: ,PAIN: 6,GCS: 15, 05:37,At Destination 05:57,Call Closed Disclaimer v1.1 Copyright 2020 [employer] This EMS Care Summary contains data elements from the applicable legal record (which may be displayed differently). It is designed to provide pertinent information for the following purposes: continuity of care, clinical quality, [address] [address] EMS Patient Care Report Name: JOSE ROBLES Room #: DEP Kun#: [id number] Admission: 04/22/21 Attend Phys: Discharge: 04/22/21 Date of : 60 Report #: [id number] and state data reporting. The complete legal record is available to ED staff and administrators of the receiving hospital in [employer]'s Patient Tracker. All data is provided "as is."
[~2021-04-22 05:42] MED LIST changes: +CEFUROXIME500 MG PO; +ZITHROMAX500 MG PO
[2021-04-22 08:04] LABS: HEMATOCRIT 23.1 % (42.0-52.0); HEMOGLOBIN 7.4 gm/dL (14.0-18.0); MCH 29.6 pg (26.0-34.0); MCHC 32.1 g/dL (28.0-37.0); MCV 92.1 fL (80.0-100.0); RBC 2.51 mil/uL (4.50-6.00); RDW 16.7 % (10.5-14.5); WBC 8.7 thou/uL (4.0-11.0)
[2021-04-22 08:25] LABS: CALCIUM 8.5 mg/dL (8.5-10.1); CREATININE 9.1 mg/dL (0.7-1.3); POTASSIUM 4.6 mmol/L (3.5-5.1)
[2021-04-22 08:29] LABS: ALBUMIN 2.8 g/dL (3.4-5.0); TOTAL BILIRUBIN 0.5 mg/dL (0.2-1.0)
[2021-04-22 09:00] VITALS: BP 155/101
== END 2021-04-22 09:01 ==
LOC: ER 05:42
PROVIDERS: Student in an Organized Health Care Education/Training Program
DX: N18.6 End stage renal disease (principal); R18.8 Other ascites; I12.0 Hypertensive chronic kidney disease with stage 5 chronic kidney disease or end stage renal disease; E78.5 Hyperlipidemia, unspecified; J44.9 Chronic obstructive pulmonary disease, unspecified; K21.9 Gastro-esophageal reflux disease without esophagitis; F17.210 Nicotine dependence, cigarettes, uncomplicated; Z79.899 Other long term (current) drug therapy; Z88.0 Allergy status to penicillin

== ENCOUNTER 2021-04-27 03:29 | Emergency (ER) | payer OTHER ==
[~2021-04-27] VITALS: Ht 170.2 cm; Wt 81.7 kg
--- NOTE | ~2021-04-27 | EMS ---
[address] [address] EMS Patient Care Report Name: JOSE ROBLES Room #: DEP SVITLANA Tristan#: [id number] Admission: 04/27/21 Attend Phys: Discharge: 04/27/21 Date of : 60 Report #: [id number] THIS REPORT FOR: //name// Report Transmitted: 04/30/2021 10:26 EMS Care Summary [place], [place]/[facility] Incident [id number] @ 04/27/2021 02:48 Incident Location [address] [place] [address] Patient JOSE ROBLES Male, 60 Years 1960 Patient Address [address] [place] [address] Patient History Chronic Obstructive Pulmonary Disease (COPD),Hypertension (HTN),Smoking,Stroke/CVA,Hyperlipidemia,Gastro-Esophageal Reflux Disease (GERD),Pneumonia,Depression,Dialysis,Hyperkalemia,Chronic Kidney Disease,Myocardial Infarction (GA), Patient Allergies Penicillin allergy, Patient Medications Doxycycline, None Reported, Sertraline, Midodrine, Hydralazine, Hydrocodone, Levetiracetam, Atorvastatin, Pantoprazole, Chief Complaint Generalized Weakness with Fall Disposition Transported No Lights/[place] Dispatch Reason Falls Transported To [address] [address] EMS Patient Care Report Name: JOSE ROBLES Room #: DEP SVITLANA Tristan#: [id number] Admission: 04/27/21 Attend Phys: Discharge: 04/27/21 Date of : 60 Report #: [id number] Narrative Dispatched to the scene of a 60 year old male with a fall. Patient reportedly fell in the bathroom after becoming lightheaded and landed on his tail bone. ID did not call for EMS, but stated the patient could call on his own. Staff stated MD would not be sending patient to the hospital for the fall because he is not compliant with his dialysis. Upon patient contact, patient stated he had fallen in the bathroom due to weakness, did not his his head, no loc, no thinners, and no neck or back pain. Patient complained of pain and weakness in both legs and right wrist pain. Staff stated patient has not been compliant with meds for about 2 days and has not been to dialysis for three days. An ALS assessment was performed and vitals were monitored. Patient was assisted to the cot, secured, and loaded into the ambulance. Patient rested comfortably while en route to [place]. Upon hospital arrival, patient was taken in on the cot, moved himself to the hospital bed, bed rails were raised, and patient care was transferred to the receiving nurse. Initial Vitals @03:16P: 76,R: 20,BP: 183/101,Pain: 4/10,GCS: 15,SpO2: 95,Revised Trauma: 12,GA Suspected: false @03:05P: 63,R: 22,BP: 181/107,Pain: 0/10,GCS: 15,Glucose: 104,CO: 8,SpO2: 94,Revised Trauma: 12,GA Suspected: false Assessments @02:58MENTAL:Time Oriented,Place Oriented,Person Oriented,Event Oriented,SKIN:HEENT:Head/Face: No Abnormalities,Neck/Airway: No Abnormalities,LUNG SOUNDS:General: No Abnormalities,ABDOMEN:General: No Abnormalities,PELVIS//GI:No Abnormalities,EXTREMITIES:Right Arm: Other,Capillary Refill: Right Upper: < 2 Sec,Right Leg: Other,Left Leg: Weakness,Left Leg: Other,Right Leg: Weakness,Left Arm: No Abnormalities,PULSE:Radial: 2+ Normal,NEURO:No Abnormalities,@03:08MENTAL:No Abnormalities,SKIN:No Abnormalities,HEENT:Head/Face: No Abnormalities,Eyes: No Abnormalities,Neck/Airway: No Abnormalities,LUNG SOUNDS:General: No Abnormalities,Left Upper: No Abnormalities,Right Upper: No Abnormalities,Left Lower: No Abnormalities,Right Lower: No Abnormalities,ABDOMEN:General: No Abnormalities,Left Upper: No Abnormalities,Right Upper: No Abnormalities,Left Lower: No Abnormalities,Right Lower: No Abnormalities,PELVIS//GI:No Abnormalities,EXTREMITIES:Right Leg: Other,Right Arm: Other,Right Leg: Weakness,Left Leg: Other,Left Leg: Weakness,Left Arm: No Abnormalities,PULSE:NEURO:No Abnormalities, Impression Generalized Weakness Procedures @02:58ALS AssessmentResponse: UnchangedSucceeded@03:003-Lead ECGResponse: UnchangedSucceeded@02:59C-Spine ClearanceResponse: Unchanged [address] [address] EMS Patient Care Report Name: JOSE ROBLES Room #: DEP SVITLANA Tristan#: [id number] Admission: 04/27/21 Attend Phys: Discharge: 04/27/21 Date of : 60 Report #: [id number] Timeline 02:45,Call Received 02:45,Dispatch Notified 02:48,Dispatched 02:48,En Route 02:57,On Scene 02:58,At Patient 02:58,ALS Assessment,Response: UnchangedSucceeded, 02:59,C-Spine Clearance,Response: Unchanged 03:00,3-Lead ECG,Response: UnchangedSucceeded, 03:05,BP: 181/107 M,PULSE: 63,RR: 22 R,SPO2: 94 Ox,ETCO2: ,B,PAIN: 0,GCS: 15, 03:16,Depart Scene 03:16,BP: 183/101 M,PULSE: 76,RR: 20 R,SPO2: 95 Ox,ETCO2: ,BG: ,PAIN: 4,GCS: 15, 03:26,At Destination 03:41,Call Closed Disclaimer v1.1 Copyright 2020 [employer] This EMS Care Summary contains data elements from the applicable legal record (which may be displayed differently). It is designed to provide pertinent information for the following purposes: continuity of care, clinical quality, and state data reporting. The complete legal record is available to ED staff and administrators of the receiving hospital in [facility]s Patient Tracker. All data is provided "as is."
[2021-04-27 05:29] LABS: ABSOLUTE NEUTROPHILS 7.1 thou/uL (1.4-8.2); BASOPHILS 1.5 % (0.0-2.0); EOSINOPHILS 2.4 % (0.0-3.0); HEMATOCRIT 26.6 % (42.0-52.0); HEMOGLOBIN 8.7 gm/dL (14.0-18.0); LYMPHOCYTES 11.3 % (24.0-44.0); MCH 29.9 pg (26.0-34.0); MCHC 32.7 g/dL (28.0-37.0); MCV 91.5 fL (80.0-100.0); MONOCYTES 5.2 % (1.0-8.0); PLATELET COUNT 174 thou/uL (150-400); POLYS 79.6 % (36.0-66.0); RBC 2.91 mil/uL (4.50-6.00); RDW 16.8 % (10.5-14.5); WBC 8.9 thou/uL (4.0-11.0)
[2021-04-27 05:36] LABS: CALCIUM 8.4 mg/dL (8.5-10.1); CREATININE 12.8 mg/dL (0.7-1.3); POTASSIUM 5.9 mmol/L (3.5-5.1)
[2021-04-27 05:42] LABS: ALBUMIN 2.8 g/dL (3.4-5.0); DIRECT BILIRUBIN 0.2 mg/dL (<0.1-0.2); TOTAL BILIRUBIN 0.4 mg/dL (0.2-1.0); TOTAL PROTEIN 7.3 g/dL (6.4-8.2)
[2021-04-27 05:56] VITALS: BP 167/100
--- NOTE | 2021-04-29 07:35 | EKG ---
[facility] [place] [address] ELECTROCARDIOGRAM REPORT Name: TRAVISJOSE MONROE Room #: [facility]#: [id number] Admission: 04/27/21 Attend Phys: Discharge: 04/27/21 Date of : 60 Report #: [id number] [facility] ED Test Date: 2021-04-27 Test Time: 04:09:00 Pat Name: JOSE ROBLES Department: Room: Gender: M Rn Eligibility: bina bonds : 1960 Requested By: Travis Freire Order Number: [id number] MD: Juarez Louis Measurements Intervals [place] Rate: 67 P: 50 AL: 142 QRS: 27 QRSD: 77 T: 103 QT: 432 QTc: 456 Interpretive Statements Sinus rhythm Probable left atrial enlargement Nonspecific T abnormalities, lateral leads Baseline wander in lead(s) V4 Compared to ECG 04/16/2021 19:24:48 No significant changes Electronically Signed On 04-29-2021 7:35:26 CDT by Juarez Louis [email or web address] <ELECTRONICALLY SIGNED> By: Juarez Louis MD, [facility] 04/29/21 0735 [id number] [id number] Juarez Louis MD, [facility] /EPI
== END 2021-04-27 09:11 | disposition home or self-care (01) ==
LOC: ER 03:29
PROVIDERS: Student in an Organized Health Care Education/Training Program
DX: R10.9 Unspecified abdominal pain (principal); Z20.822 Contact with and (suspected) exposure to COVID-19; N18.6 End stage renal disease; I12.0 Hypertensive chronic kidney disease with stage 5 chronic kidney disease or end stage renal disease; E78.5 Hyperlipidemia, unspecified; J44.9 Chronic obstructive pulmonary disease, unspecified; I25.10 Atherosclerotic heart disease of native coronary artery without angina pectoris; I42.9 Cardiomyopathy, unspecified; K21.9 Gastro-esophageal reflux disease without esophagitis; F10.21 Alcohol dependence, in remission; F32.9 Major depressive disorder, single episode, unspecified; F17.210 Nicotine dependence, cigarettes, uncomplicated; Z91.15 Patient's noncompliance with renal dialysis; Z99.2 Dependence on renal dialysis; Z98.890 Other specified postprocedural states; Z79.899 Other long term (current) drug therapy; Z79.891 Long term (current) use of opiate analgesic; Z88.0 Allergy status to penicillin

== ENCOUNTER 2021-04-27 13:31 | Emergency (ER) | payer OTHER ==
[~2021-04-27] VITALS: Ht 180.3 cm; Wt 66.7 kg
[2021-04-27 15:19] VITALS: BP 171/93
--- NOTE | 2021-04-29 07:37 | EKG ---
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: KEMAL : 1960 Requested By: Smith Knox Order Number: [id number] MD: Juarez Louis Measurements Intervals [place] Rate: 77 P: 39 NM: 143 QRS: 28 QRSD: 88 T: 67 QT: 380 QTc: 431 Interpretive Statements Sinus rhythm Probable left atrial enlargement Compared to ECG 04/27/2021 04:09:00 T-wave abnormality no longer present Electronically Signed On 04-29-2021 7:37:21 CDT by Juarez Louis [email or web address] <ELECTRONICALLY SIGNED> By: Juarez Louis MD, [facility] 04/29/21 0737 1338 1338 Juarez Louis MD, [facility]ACC /EPI
== END 2021-04-27 15:19 | disposition home or self-care (01) ==
LOC: ER 13:31
DX: E87.6 Hypokalemia (principal); E87.1 Hypo-osmolality and hyponatremia; E78.5 Hyperlipidemia, unspecified; J44.9 Chronic obstructive pulmonary disease, unspecified; K21.9 Gastro-esophageal reflux disease without esophagitis; F17.210 Nicotine dependence, cigarettes, uncomplicated; N18.6 End stage renal disease; I12.0 Hypertensive chronic kidney disease with stage 5 chronic kidney disease or end stage renal disease; Z79.899 Other long term (current) drug therapy; Z91.15 Patient's noncompliance with renal dialysis; Z99.2 Dependence on renal dialysis; Z88.0 Allergy status to penicillin

== ENCOUNTER 2021-04-30 16:48 | Inpatient (IN) | payer OTHER ==
[~2021-04-30] VITALS: Ht 180.3 cm; Wt 74.7 kg
--- NOTE | ~2021-04-30 | EMS ---
[address] [address] EMS Patient Care Report Name: JOSE ROBLES Room #: 214-P [facility] IN M.R.#: [id number] Admission: 04/30/21 Attend Phys: Marcos Mann MD Discharge: 05/01/21 Date of : 60 Report #: [id number] THIS REPORT FOR: //name// Report Transmitted: 05/02/2021 09:17 EMS Care Summary [place], [place]/[facility] Incident [id number] @ 04/30/2021 16:13 Incident Location [address] [place] [address] Patient JOSE ROBLES Male, 60 Years 1960 Patient Address [address] [place], [place] [id number] Patient History Chronic Obstructive Pulmonary Disease (COPD),Hypertension (HTN),Smoking,Stroke/CVA,Hyperlipidemia,Gastro-Esophageal Reflux Disease (GERD),Pneumonia,Depression,Dialysis,Hyperkalemia,Chronic Kidney Disease,Myocardial Infarction ([place]), Patient Allergies Penicillin allergy, Patient Medications Carvedilol, Doxycycline, Sertraline, Hydrocodone, Hydralazine, Pantoprazole, Midodrine, Atorvastatin, Levetiracetam, None Reported, Chief Complaint CHEST PAIN Disposition Transported No Lights/[place] Dispatch Reason Breathing [place] [address] EMS Patient Care Report Name: JOSE ROBLES Room #: 214-P [facility] IN [facility]#: [id number] Admission: 04/30/21 Attend Phys: Marcos Mann MD Discharge: 05/01/21 Date of : 60 Report #: [id number] Narrative EMS ARRIVED ON SCENE AT THE ADDRESS ABOVE. EMS AMDE PT CONTACT, PT WAS SITTING IN A CHAIR, GCS 15 ON 4 LPM NC 02. PT STATED HIS CHEST BEGAN TO HURT A FEW HOUR PRIOR TO CALLING EMS AND STATES IT HAS NEVER HAPPENED BEFORE. PT WAS HELPED AMBULATED TO THE NEAR BY AWAITING STRETCHER AND SECURED WITH SEATBELTS. [address] NO [address] ELEVATION OR DEPRESSION. VITAL SIGNS WERE MONITORED THROUGHOUT TRANSPORT WITH NO DECLINE IN MENTAL OR PHYSICAL STATUS. TRANSFER OF CARE WAS GIVEN TO [facility] IN ER. Initial Vitals @16:29P: 63, @16:31P: 61,R: 18,BP: 132/85,Pain: 2/10,GCS: 15,SpO2: 98,Revised Trauma: 12, @16:28P: 67,R: 16,BP: 139/89,Pain: 2/10,GCS: 15,SpO2: 96,Revised Trauma: 12, Assessments @16:22MENTAL:Place Oriented,Person Oriented,Event Oriented,Time Oriented,SKIN:HEENT:Head/Face: No Abnormalities,Neck/Airway: No Abnormalities,LUNG SOUNDS:General: No Abnormalities,ABDOMEN:General: No Abnormalities,PELVIS//GI:No Abnormalities,EXTREMITIES:Left Arm: No Abnormalities,Right Arm: No Abnormalities,Left Leg: No Abnormalities,Right Leg: No Abnormalities,PULSE:NEURO:No Abnormalities, Impression Chest Pain / Discomfort Procedures @16:2912-Lead ECGResponse: UnchangedSucceeded@16:22ALS AssessmentResponse: UnchangedSucceeded@16:24Oxygen FlowRate: 4 Device: Nasal Cannula (NC) Response: UnchangedSucceeded@16:27Aspirin - 324 Milligrams (mg) - OralResponse: Improved Timeline 16:12,Call Received 16:12,Dispatch Notified 16:13,Dispatched 16:14,En Route 16:21,On Scene 16:22,At Patient 16:22,ALS Assessment,Response: UnchangedSucceeded, 16:24,Oxygen FlowRate: 4 Device: Nasal Cannula (NC) Response: UnchangedSucceeded, 16:27,Aspirin - 324 Milligrams (mg) - Oral,Response: Improved 16:28,BP: 139/89 M,PULSE: 67,RR: 16 R,SPO2: 96 Ox,ETCO2: ,BG: ,PAIN: 2,GCS: 15, 16:29,12-Lead ECG,Response: UnchangedSucceeded, 16:29,BP: / M,PULSE: 63,RR: R,SPO2: Ox,ETCO2: ,BG: ,PAIN: ,GCS: , 16:31,BP: 132/85 M,PULSE: 61,RR: 18 R,SPO2: 98 Ox,ETCO2: ,BG: ,PAIN: 2,GCS: 15, 16:32,Depart Scene [facility] [address] [place] [address] EMS Patient Care Report Name: JOSE ROBLES Room #: 214-P [facility] IN M.R.#: [id number] Admission: 04/30/21 Attend Phys: Marcos Mann MD Discharge: 05/01/21 Date of : 60 Report #: [id number] 16:43,At Destination 17:00,Call Closed Disclaimer v1.1 Copyright 2020 [employer] This EMS Care Summary contains data elements from the applicable legal record (which may be displayed differently). It is designed to provide pertinent information for the following purposes: continuity of care, clinical quality, and state data reporting. The complete legal record is available to ED staff and administrators of the receiving hospital in [employer] Patient Tracker. All data is provided "as is."
[2021-04-30 17:24] LABS: ALBUMIN 3.1 g/dL (3.4-5.0); CREATININE 16.5 mg/dL (0.7-1.3); TOTAL BILIRUBIN 0.5 mg/dL (0.2-1.0); TOTAL PROTEIN 7.9 g/dL (6.4-8.2)
[2021-04-30 17:25] LABS: ABSOLUTE NEUTROPHILS 8.4 thou/uL (1.4-8.2); BASOPHILS 0.6 % (0.0-2.0); EOSINOPHILS 0.1 % (0.0-3.0); HEMATOCRIT 24.6 % (42.0-52.0); HEMOGLOBIN 7.8 gm/dL (14.0-18.0); LYMPHOCYTES 5.7 % (24.0-44.0); MCH 29.4 pg (26.0-34.0); MCV 92.1 fL (80.0-100.0); MONOCYTES 4.9 % (1.0-8.0); PLATELET COUNT 158 thou/uL (150-400); POLYS 88.7 % (36.0-66.0); RBC 2.67 mil/uL (4.50-6.00); RDW 16.5 % (10.5-14.5); WBC 9.5 thou/uL (4.0-11.0)
[2021-04-30 17:37] LABS: DIRECT BILIRUBIN 0.1 mg/dL (<0.1-0.2)
[2021-04-30 17:56] LABS: POTASSIUM 6.5 mmol/L (3.5-5.1)
[2021-04-30 21:24] VITALS: BP 127/68
[2021-04-30 22:33] VITALS: BP 135/85
--- NOTE | 2021-04-30 23:30 | NUR ---
Pt. arrived to the unit from emergency room accomanied by staff. He is drowsy, but easily arrousable. Pt. is non-compliant and does not always answer your questions. Oriented times three. Admission assessment and history is completed. Bed alarm is on.
[2021-05-01 00:15] VITALS: BP 91/65
[2021-05-01 04:39] VITALS: BP 98/69
--- NOTE | 2021-05-01 05:04 | NUR ---
Pt. rested quietly at intervals during the night. He has not been compliant with the optiflow. He keeps taking it out of his nose and then pt. starts to desat. He has been educated on the importance of leaving it on, but he continues to pull it out of his nose. He refused lab draws this am. Bed alarm is on.
--- NOTE | 2021-05-01 10:36 | NUR ---
ASSUMED CARE OF PT AT 0700. DURING SHIFT REPORT SCRUBBER MACHINE TENDER RN LEO AND MYSELF IN PT'S ROOM REPOSITIONING AND PLACING OPTIFLOW ON PT. AT THAT TIME PT REFUSED TO KEEP OPTIFLOW ON AND SAT UP AND SCREAMED AT NURSING STAFF WHEN HE WAS REPOSITIONED. WATCH INSPECTOR FINAL MOVEMENT IN ROOM AT 0730. DR ODOM IN TO SEE PT AT 0750. WILL ATTEMPT TO GIVE MEDS ONCE DIALYSIS TREATMENT IN FINISHED. WILL CONTINUE TO MONITOR.
[2021-05-01] MEDS ORDERED: BAYER CHEWABLE81 MG PO (13:38)
--- NOTE | 2021-05-01 13:52 | NUR ---
PT REFUSING TO WEAR OPTIFLOW OR NRB MASK. OPTIFLOW REMOVED FROM ROOM. NRBMASK LEFT AT BEDSIDE.
[2021-05-01 14:30] VITALS: BP 129/88
--- NOTE | 2021-05-01 14:51 | NUR ---
Patient admits from [facility]. He is ESRD and dializes at [facility]. Sp with Merly at clinic and alerted of discharge today. Spoke with patient who is in ageement for dc today and return to [facility]. Spoke with admissions at [facility]. Faxed clinical information and dc orders also sent to [facility]. wc van from [facility] for 1430. Left message on phone for sister. Chart copied. No further needs
--- NOTE | 2021-05-01 15:31 | 2DMMODE ---
[facility] [place] [address] 2 D/M-MODE ECHOCARDIOGRAM Name: JOSE ROBLES Room #: 214-P DIS IN .R.#: [id number] Admission: 04/30/21 Attend Phys: Marcos Mann MD Discharge: 05/01/21 Date of : 60 Report #: [id number] THIS REPORT FOR: cc: Brandan Mcdowell MD, Srinath MD Lundgren,Ruben Alexander MD [facility] ~ APPROVED REPORT Study performed: 05/01/2021 13:43:05 EXAM: Comprehensive 2D, Doppler, and color-flow Echocardiogram Patient Location: In-Patient Room #: 214 Status: routine BSA: 1.94 HR: 70 bpm BP: 98/69 mmHg Rhythm: NSR Other Information Study Quality: Good Indications CAD Cardiomegaly Chest Pain Hypertension/HDD 2D Dimensions IVSd: 11.52 (7-11mm) LVOT Diam: 20.69 (18-24mm) LVDd: 48.45 mm PWd: 13.35 (7-11mm) Ascending Ao: 38.05 (22-36mm) LVDs: 31.70 (25-40mm) Left Atrium: 42.74 (27-40mm) Aortic Root: 30.12 mm LV Single Plane 4CH: 62.68 % Volumes Left Atrial Volume (Systole) Single Plane 4CH: 84.94 mL Single Plane 2CH: 63.30 mL Biplane LA Volume: 86.00 mL LA ESV Index: 44.00 mL/m2 Aortic Valve AoV Peak Timothy.: 2.06 m/s [facility] [address] [place] [address] 2 D/M-MODE ECHOCARDIOGRAM Name: JOSE ROBLES Room #: 214-P [facility]#: [id number] Admission: 04/30/21 Attend Phys: Marcos Mann MD Discharge: 05/01/21 Date of : 60 Report #: [id number] AO Peak Gr.: 17.06 mmHg LVOT Max P.43 mmHg LVOT Max V: 1.69 m/s JULIO C Vmax: 2.75 cm2 Mitral Valve E/A Ratio: 1.4 MV Decel. Time: 237.37 ms MV E Max Timothy.: 1.09 m/s MV A Timothy.: 0.78 m/s MV PHT: 68.84 ms IVRT: 69.20 ms Pulmonary Valve PV Peak Timothy.: 1.27 m/s PV Peak Gr.: 6.42 mmHg Pulmonary Vein P Vein S: 0.40 m/s P Vein D: 0.46 m/s P Vein S/D Ratio: 0.87 Tricuspid Valve TR Peak Timothy.: 4.09 m/s RAP Estimate: 15.00 mmHg TR Peak Gr.: 66.99 mmHg RVSP: 82.00 mmHg Left Ventricle The left ventricle is normal size. There is normal LV segmental wall motion. Mild concentric left ventricular hypertrophy. Left ventricular systolic function is normal. The left ventricular ejection fraction is within the normal range. LVEF is 60-65%. Moderate diastolic dysfunction Right Ventricle The right ventricle is normal size. The right ventricular systolic function is normal. Atria Left atrium is dilated. Right atrium is dilated. Aortic Valve Aortic valve leaflets are mildly calcified. Mild aortic regurgitation. There is no aortic valvular stenosis. Mitral Valve The mitral valve is normal in structure. Trace mitral regurgitation. No evidence of mitral valve stenosis. [facility] [address] [place] [address] 2 D/M-MODE ECHOCARDIOGRAM Name: JOSE ROBLES Michael Room #: 214-P [facility] IN [facility].#: [id number] Admission: 04/30/21 Attend Phys: Marcos Mann MD Discharge: 05/01/21 Date of : 60 Report #: [id number] Tricuspid Valve The tricuspid valve is normal in structure. Moderate tricuspid regurgitation. Pulmonary artery pressure of 65mmHg Pulmonic Valve The pulmonary valve is normal in structure. There is no pulmonic valvular regurgitation. Great Vessels The aortic root is normal in size. IVC is normal in size and collapses >50% with inspiration. Pericardium Trace pericardial effusion <Conclusion> Left ventricular systolic function is normal. There is normal LV segmental wall motion. Mild concentric left ventricular hypertrophy. EF 65%. Moderate diastolic dysfunction Both atria are dilated. Aortic valve leaflets are mildly calcified. Mild aortic regurgitation, no stenosis. The mitral valve is normal in structure. Trace mitral regurgitation. Pulmonary artery pressure of 65mmHg Trace pericardial effusion <ELECTRONICALLY SIGNED> By: Ruben Devine MD, [facility] 05/01/21 1530 1530 1530 Ruben Devine MD, FAC /INF
--- NOTE | 2021-05-02 12:20 | EKG ---
[address] [place] [address] ELECTROCARDIOGRAM REPORT Name: JOSE ROBLES Room #: 214-[facility] IN M.R.#: [id number] Admission: 04/30/21 Attend Phys: Marcos Mann MD Discharge: 05/01/21 Date of : 60 Report #: [id number] [facility] ED Test Date: 2021-04-30 Test Time: 16:56:28 Pat Name: JOSE ROBLES Department: Room: 214 Gender: M Boiler Tester: Ruthy GARCIA : 1960 Requested By: Viola Menard Order Number: [id number] MD: Ruben Devine Measurements Intervals [place] Rate: 63 P: 52 [place]: 150 QRS: 58 QRSD: 81 T: 37 QT: 447 QTc: 458 Interpretive Statements Sinus rhythm Poor R wave progression Compared to ECG 04/27/2021 13:38:45 No significant changes Electronically Signed On 05-02-2021 12:20:20 CDT by Ruben Devine [email or web address] <ELECTRONICALLY SIGNED> By: Ruben Devine MD, [facility] 05/02/21 1220 1656 165 Ruben Devine MD, [facility] /EPI
--- NOTE | 2021-05-02 12:39 | EKG ---
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 : 1960 Requested By: Deborah Cortez Order Number: [id number] MD: Ruben Devine Measurements Intervals [place] Rate: 77 P: 71 [place]: 125 QRS: 63 QRSD: 83 T: 58 QT: 432 QTc: 489 Interpretive Statements Sinus rhythm Left ventricular hypertrophy Minimal ST elevation, anterolateral leads Borderline prolonged QT interval No previous ECGs available for comparison Electronically Signed On 05-02-2021 12:38:43 CDT by Ruben Devine [email or web address] <ELECTRONICALLY SIGNED> By: Ruben Devine MD, [facility] 05/02/21 1238 32 32 Ruben Devine MD, [facility] /EPI
== END 2021-05-01 14:50 | DRG 640 ==
LOC: ER 16:48 → EROBS 20:12 → 2N 20:12
PROVIDERS: Emergency Medicine; ADMIT Internal Medicine; ATTEND Internal Medicine
PROC: 5A0935A Assistance with Respiratory Ventilation, Less than 24 Consecutive Hours, High Flow/Velocity Cannula (ICD-10-PCS; principal; 2021-04-30)
DX: E87.5 Hyperkalemia (principal); J96.21 Acute and chronic respiratory failure with hypoxia; N18.6 End stage renal disease; G93.41 Metabolic encephalopathy; I12.0 Hypertensive chronic kidney disease with stage 5 chronic kidney disease or end stage renal disease; I69.354 Hemiplegia and hemiparesis following cerebral infarction affecting left non-dominant side; R77.8 Other specified abnormalities of plasma proteins; Z20.822 Contact with and (suspected) exposure to COVID-19; F32.9 Major depressive disorder, single episode, unspecified; K21.9 Gastro-esophageal reflux disease without esophagitis; I25.10 Atherosclerotic heart disease of native coronary artery without angina pectoris; G40.909 Epilepsy, unspecified, not intractable, without status epilepticus; F17.210 Nicotine dependence, cigarettes, uncomplicated; Z86.718 Personal history of other venous thrombosis and embolism; Z91.15 Patient's noncompliance with renal dialysis; Z88.0 Allergy status to penicillin; Z79.01 Long term (current) use of anticoagulants; E78.5 Hyperlipidemia, unspecified; N40.0 Benign prostatic hyperplasia without lower urinary tract symptoms; D63.1 Anemia in chronic kidney disease; J44.9 Chronic obstructive pulmonary disease, unspecified
CPT/HCPCS: 10081

== ENCOUNTER 2021-05-09 20:48 | Inpatient (IN) | payer OTHER ==
[~2021-05-09] VITALS: Ht 172.7 cm; Wt 67.1 kg
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
--- NOTE | ~2021-05-09 | EMS ---
[address] [address] EMS Patient Care Report Name: JOSE ROBLES Room #: 244-P ADM IN M.R.#: [id number] Admission: 05/10/21 Attend Phys: Regina Carl MD Discharge: Date of : 60 Report #: [id number] THIS REPORT FOR: //name// Report Transmitted: 05/12/2021 11:22 EMS Care Summary [place], [place]/[facility] Incident [id number] @ 05/09/2021 20:09 Incident [address] [place] [address]- Patient JOSE ROBLES Male, 60 Years 1960 Patient Address [address] [place] [address] Patient History Chronic Obstructive Pulmonary Disease (COPD),Hypertension (HTN),Smoking,Stroke/CVA,Hyperlipidemia,Gastro-Esophageal Reflux Disease (GERD),Pneumonia,Depression,Dialysis,Hyperkalemia,Chronic Kidney Disease,Myocardial Infarction (NC), Patient Allergies Penicillin allergy, Patient Medications Midodrine, Sertraline, Atorvastatin, Hydralazine, Pantoprazole, Carvedilol, None Reported, Doxycycline, Levetiracetam, Hydrocodone, Chief Complaint Weakness Disposition Transported No Lights/[place] Dispatch Reason Breathing Problem Transported To [address] [address] EMS Patient Care Report Name: JOSE ROBLES Room #: 244-P [facility] IN [facility]#: [id number] Admission: 05/10/21 Attend Phys: Regina Carl MD Discharge: Date of : 60 Report #: [id number] Narrative M42 arrived on scene to find the patient sitting upright in his bed. Patient had been refusing to wear his oxygen or go to dialysis. Patient had also had swelling to his right eye. Patient denied shortness of breath, fever, or feeling lightheaded. Patient was moved to the cot and secured with seat belts. En route to the hospital no changes in the patient condition occurred. M42 arrived on scene of the hospital and patient care was transferred to the RN. Initial Vitals @20:31P: 66,BP: 138/90, @20:29P: 73,R: 16,BP: 177/97,Pain: 0/10,GCS: 14,Glucose: 152,CO: 0,SpO2: 96,Revised Trauma: 12, @20:32P: 69,R: 16,BP: 139/88,GCS: 14,SpO2: 97,Revised Trauma: 12, Assessments @20:19MENTAL:Person Oriented,Confused,Event Oriented,Place Oriented,SKIN:No Abnormalities,HEENT:Head/Face: No Abnormalities,Eyes: No Abnormalities,Neck/Airway: No Abnormalities,LUNG SOUNDS:General: No Abnormalities,Left Upper: No Abnormalities,Right Upper: No Abnormalities,Left Lower: No Abnormalities,Right Lower: No Abnormalities,ABDOMEN:General: No Abnormalities,Left Upper: No Abnormalities,Right Upper: No Abnormalities,Left Lower: No Abnormalities,Right Lower: No Abnormalities,PELVIS//GI:No Abnormalities,EXTREMITIES:Left Arm: No Abnormalities,Right Arm: No Abnormalities,Left Leg: No Abnormalities,Right Leg: No Abnormalities,PULSE:NEURO:No Abnormalities,@20:27MENTAL:Confused,Time Oriented,SKIN:No Abnormalities,HEENT:Head/Face: No Abnormalities,Eyes: No Abnormalities,Neck/Airway: No Abnormalities,LUNG SOUNDS:General: No Abnormalities,Left Upper: No Abnormalities,Right Upper: No Abnormalities,Left Lower: No Abnormalities,Right Lower: No Abnormalities,ABDOMEN:General: No Abnormalities,Left Upper: No Abnormalities,Right Upper: No Abnormalities,Left Lower: No Abnormalities,Right Lower: No Abnormalities,PELVIS//GI:No Abnormalities,EXTREMITIES:Left Arm: No Abnormalities,Right Arm: No Abnormalities,Left Leg: No Abnormalities,Right Leg: No Abnormalities,PULSE:NEURO:No Abnormalities, Impression Generalized Weakness Procedures @20:19ALS AssessmentResponse: UnchangedSucceeded Timeline 20:07,Call Received 20:07,Dispatch Notified 20:09,Dispatched 20:09,En Route [address] [address] EMS Patient Care Report Name: JOSE ROBLES Room #: 244-P ADM IN M.R.#: [id number] Admission: 05/10/21 Attend Phys: Regina Carl MD Discharge: Date of : 60 Report #: [id number] 20:18,On Scene 20:19,At Patient 20:19,ALS Assessment,Response: UnchangedSucceeded, 20:29,BP: 177/97 M,PULSE: 73,RR: 16 R,SPO2: 96 Ox,ETCO2: ,B,PAIN: 0,GCS: 14, 20:31,BP: 138/90 M,PULSE: 66,RR: R,SPO2: Ox,ETCO2: ,BG: ,PAIN: ,GCS: , 20:32,BP: 139/88 M,PULSE: 69,RR: 16 R,SPO2: 97 Ox,ETCO2: ,BG: ,PAIN: ,GCS: 14, 20:33,Depart Scene 20:58,At Destination 20:59,Call Closed Disclaimer v1.1 Copyright 2020 [employer] This EMS Care Summary contains data elements from the applicable legal record (which may be displayed differently). It is designed to provide pertinent information for the following purposes: continuity of care, clinical quality, and state data reporting. The complete legal record is available to ED staff and administrators of the receiving hospital in [employer] Patient Tracker. All data is provided "as is."
--- NOTE | ~2021-05-09 | HC ---
[facility] [place] [address] CONSULTATION Name: JOSE ROBLES Room #: 244-P [facility] IN M.R.#: [id number] Admission: 05/10/21 Attend Phys: Nasir Lam MD Discharge: Date of : 60 Report #: [id number] THIS REPORT FOR: cc: Brandan Mcodwell MD, Srinath MD Khosla,Emery Lilly MD ~ DATE OF SERVICE: 05/10/2021 HISTORY OF PRESENT ILLNESS: This is a 60-year-old male patient who was seen by me and I discussed the patient with the nurses. This patient had a cardiopulmonary arrest. I reviewed the record and looks like this patient is pretty noncompliant with medical treatment. Nurses have noticed some posturing in this patient. He missed his dialysis and then came to the emergency room. He arrested. He had hyperkalemia at that time. I do not have any further history on this patient. Apparently, one of his medication is Keppra. I do not know when it was started. REVIEW OF SYSTEMS: From the record and it is pretty extensive. He has been seen by multiple consultants at the moment. He had, what looks like a prolonged cardiac arrest. Record indicates that he has a history of hypertension, hyperlipidemia, tobacco dependency, history of DVT, end-stage renal disease with noncompliance, jerk, BPH, depression, CVA with weakness on the left side and seizure disorder. This is all from the history as the patient is not able to provide any history. PAST MEDICAL HISTORY: Positive for being on dialysis. FAMILY HISTORY: Unavailable. SOCIAL HISTORY: Apparently lives in a fci. PHYSICAL EXAMINATION: On my examination, this patient is deeply comatose. He did not respond to anything except his both plantars are upgoing. He did not posture for me. Difficult to tell about the pupils in this patient. CARDIORESPIRATORY: As per swatch folder and community service representative. Vital signs indicate the patient is on a vent. Temperature is 93.5. Blood pressure is 126/76. He did have a CT scan of the head, which was reviewed and a lot of motion, but I think the pictures are reasonably clean to rule out any subdural hematoma or any hemorrhage. His pulses are difficult to feel. LABORATORY DATA: His white count is 10.8. His potassium, when he came in, was 6.5. It is still 6.3. His GFR is only 4 and he is getting dialysis. IMPRESSION: Encephalopathy secondary to cardiac arrest. We will get an EEG done to look for any seizure. We [place] [address] CONSULTATION Name: TRAVISJOSE Room #: 244-P [facility] IN .R.#: [id number] Admission: 05/10/21 Attend Phys: Nasir Lam MD Discharge: Date of : 60 Report #: [id number] still have some responsive and we will continue to do the evaluation. He will probably need a repeat CT or MRI, but presently he had one, although the pictures are not good. I do not think risk/benefit ratio justify taking him down at the moment. Thank you very much for this referral and if you have any questions, please feel free to contact me. By: [phone] 13 Emery López MD /nt
--- NOTE | ~2021-05-09 | EEG ---
[facility] [place] [address] ELECTROENCEPHALOGRAM Name: JOSE ROBLES Room #: 244-P [facility] IN M.R.#: [id number] Admission: 05/10/21 Attend Phys: Nasir Lam MD Discharge: Date of : 60 Report #: [id number] THIS REPORT FOR: //name// DATE OF SERVICE: 05/10/2021 EEG was done to evaluate for encephalopathy. RAMONA has a lot of artifact and is virtually uninterpretable. Photic stimulation is unremarkable. IMPRESSION: This EEG has a lot of artifact and is virtually uninterpretable. Low voltage activity appeared to be present without any epileptiform activity. By: 1103 1116 Emery López MD /nt
[2021-05-09 20:48] VITALS: BP 144/88
[~2021-05-09 20:48] MED LIST changes: +BAYER CHEWABLE81 MG PO
[2021-05-09 22:45] LABS: URINE BILIRUBIN NEGATIVE (Negative); URINE BLOOD 1+ (Negative); URINE CLARITY SL CLOUDY; URINE COLOR YELLOW; URINE GLUCOSE-RANDOM* NEGATIVE (Negative); URINE KETONES NEGATIVE (Negative); URINE LEUKOCYTES-REFLEX 1+ (Negative); URINE NITRITE-REFLEX NEGATIVE (Negative); URINE PROTEIN (DIPSTICK) 2+ (Negative); URINE SPECIFIC GRAVITY 1.025 (1.005-1.035); URINE UROBILINOGEN 0.2 E.U./dl (0.2-1.0)
[2021-05-09 22:52] LABS: AMP/METHAMP Negative (Negative); BARBITURATES Negative (Negative); BENZODIAZEPINES Negative (Negative); COCAINE Negative (Negative); METHADONE Negative (Negative); OPIATES Negative (Negative); PCP Negative (Negative)
[2021-05-09 23:01] LABS: CASTS None Seen /LPF (None Seen); MUCUS 0-3 Light strn/LPF (None Seen); SQUAMOUS 0-3 Few /LPF (0-3); TRANSITIONAL EPITHEL CELL >10 Many /LPF (None Seen)
[2021-05-09 23:02] LABS: AMORPHOUS URATES Moderate /LPF (None Seen); BACTERIA-REFLEX 1-9 Few /HPF (None Seen); CRYSTALS None Seen /LPF (None Seen); RENAL EPITHELIAL CELLS 0-3 Few /LPF (None Seen); URINE RBC 3-10 Few /HPF (NONE SEEN)
[2021-05-09 23:17] LABS: HEMATOCRIT 25.3 % (42.0-52.0); HEMOGLOBIN 7.9 gm/dL (14.0-18.0); MCH 29.3 pg (26.0-34.0); MCHC 31.4 g/dL (28.0-37.0); MCV 93.3 fL (80.0-100.0); RBC 2.71 mil/uL (4.50-6.00); RDW 17.2 % (10.5-14.5); WBC 10.8 thou/uL (4.0-11.0)
[2021-05-09 23:42] LABS: ALBUMIN 2.3 g/dL (3.4-5.0); ANION GAP 11 mmol/L (7-16); BUN 155 mg/dL (7-18); CALCIUM 9.2 mg/dL (8.5-10.1); CHLORIDE 104 mmol/L (98-107); CO2 24 mmol/L (21-32); CREATININE 16.9 mg/dL (0.7-1.3); GLUCOSE 137 mg/dL (74-106); MAGNESIUM 2.2 mg/dL (1.8-2.4); PHOSPHORUS 9.5 mg/dL (2.6-4.7); SALICYLATE < 2.8 mg/dL (2.8-20.0); SGOT 35 U/L (15-37); SGPT 27 U/L (16-63); SODIUM 139 mmol/L (136-145); TOTAL BILIRUBIN 0.5 mg/dL (0.2-1.0); TOTAL PROTEIN 7.7 g/dL (6.4-8.2)
[2021-05-09 23:44] LABS: POTASSIUM 6.5 mmol/L (3.5-5.1)
[2021-05-10] VITALS (56 sets, daily range): BP systolic 76–135; BP diastolic 41–93
[2021-05-10 07:32] LABS: CREATININE 16.8 mg/dL (0.7-1.3)
[2021-05-10 07:36] LABS: POTASSIUM 6.3 mmol/L (3.5-5.1)
[2021-05-10 07:37] LABS: CALCIUM 15.2 mg/dL (8.5-10.1)
--- NOTE | 2021-05-10 07:51 | NUR ---
RN FOUND PT UNRESPONSIVE AT 0609. PT HEAD WAS BETWEEN BED RAILS, NO PULSE, AND PT WAS FOAMING AT THE MOUTH. DOCTOR IMMEDIATELY CALLED FOR AND PRESENTED AT BEDSIDE. CPR INITIATED. REFER TO CODE SHEET FOR TIME OF EVENTS.
--- NOTE | 2021-05-10 14:16 | NUR ---
RN RECEIVIED THIS PATIENT FROM ER AT 0820. PT WAS ALREADY INTUBATED. PT STARTED TO RECEIVE DIAYLSIS AND BP STARTED TO GO DOWN TO 80/50S. STARTED PATIENT ON LEVO AND TURNED OFF PROPOFOL. ALSO STARTED HIM ON FENTANYL AND VERSED FOR SEDATION. PT BLOOD PRESSURE NOW 132/86. PT HAD ORDER FOR CENTRAL LINE, IV NURSE TRIED TO PLACE CENTRAL LINE AND GOT 2 PERIPHERAL EJ IVS. TO IS SATTING > 95% on FIO2 100%. PATIENT BEING PREPARED FOR EEG. WILL CONTINUE TO MONITOR.
--- NOTE | 2021-05-10 14:32 | NUR ---
ATTEMPTED IJ PLACEMENT IN RT AND LT JUGULARS AND LINE WOULD NOT THREAD TO SVC, ATTEMPT IN RT FEM AND LINE WOULD NOT THREAD, ABORTED PROCEDURE AND PLACED AN 18G IN RT AND LT JUGULARS.
[2021-05-10 20:16] LABS: CALCIUM 9.1 mg/dL (8.5-10.1); CREATININE 9.1 mg/dL (0.7-1.3); POTASSIUM 4.5 mmol/L (3.5-5.1)
[2021-05-11] VITALS (89 sets, daily range): BP systolic 76–121; BP diastolic 55–91
[2021-05-11 04:20] LABS: MCHC 33.5 g/dL (28.0-37.0); RBC 2.11 mil/uL (4.50-6.00); WBC 9.5 thou/uL (4.0-11.0)
[2021-05-11 04:22] LABS: MCH 30.1 pg (26.0-34.0); RDW 16.6 % (10.5-14.5)
[2021-05-11 04:23] LABS: CALCIUM 8.8 mg/dL (8.5-10.1); CREATININE 9.7 mg/dL (0.7-1.3); POTASSIUM 4.8 mmol/L (3.5-5.1)
[2021-05-11 04:32] LABS: HEMOGLOBIN 6.3 gm/dL (14.0-18.0)
[2021-05-11 05:04] LABS: BE(vivo) 3.8 mmol/L (-2 to +3); HCO3 26.5 mmol/L (22.0-26.0); PCO2 31.3 mmHg (35.0-45.0); PO2 98.7 mmHg (80.0-100.0); pH 7.545 (7.360-7.450); sO2 98.2 % (92.0-98.0)
[2021-05-11 13:27] LABS: BE(vivo) 2.7 mmol/L (-2 to +3); HCO3 27.9 mmol/L (22.0-26.0); PCO2 45.8 mmHg (35.0-45.0); PO2 61.6 mmHg (80.0-100.0); pH 7.402 (7.360-7.450); sO2 91.5 % (92.0-98.0)
[2021-05-11 15:03] LABS: HEMOGLOBIN 6.2 gm/dL (14.0-18.0)
[2021-05-11 15:04] LABS: HEMATOCRIT 18.9 % (42.0-52.0)
--- NOTE | 2021-05-11 17:50 | NUR ---
PT IS PROGRESSING TOWARDS DISCHARGE AT THIS TIME EVIDENCED BY, CONCERN FOR THIS PT IS NEUROLOGIC STATUS S/P CODE RESUSCITATION, PT WAS NONE RESPONSIVE TO PAINFUL STIMULI AT THE BEGINNING OF THE SHIFT, RN TITRATED THE SEDATION/LEVOPHED THROUGHOUT THE SHIFT, CURRENTLY DECREASED LEVO TO OFF, VERSED TO 1, AND FENTANYL TO 25. PT WAS SEEN GRIMACING TO PAIN, WITHDRAWING FROM PAIN WELL. STILL PUPILS APPEAR FIXED, AND HAVE DOLL EYES; COUGH/GAG PRESENT. TO CONTINUE TO OBSERVE NEUROLOGICAL STATUS AND RECOMMEND DECREASING SEDATION APPROPERIATE. PT RECEIVED 1U OF BLODO PRODUCT TODAY AFTER HEMOGLOBIN OF 6.3 S/P INFUSIONG HEMOGLOBIN 6.2 LOWER, NO ACTIVE BLEEDING OBSERVED FROM GI SYSTEM (OG OR BM) OR HEMATURIA, OR THROUGH THE INLINE SUCTION. PROVIDER MADE AWARE. SECOND UNIT OF BLOOD PRODUCT BEING ADMINISTERED RIGHT NOW. WILL CONTINUE TO OBSERVE. MULTIPLE FAMILY MEMBERS CAME TO SEE THE PATIENT TODAY. NEEDING CLARITY ON WHO TO PROVIDE REPORT TOO. RN CONTINUING TO CARE FOR THE PATIENT, WILL UPDATE NEEDED.
[2021-05-12] VITALS (61 sets, daily range): BP systolic 108–137; BP diastolic 77–93
[2021-05-12 04:47] LABS: HEMATOCRIT 25.9 % (42.0-52.0); MCH 29.8 pg (26.0-34.0); MCHC 33.2 g/dL (28.0-37.0); MCV 89.8 fL (80.0-100.0); RBC 2.89 mil/uL (4.50-6.00); RDW 15.9 % (10.5-14.5); WBC 7.4 thou/uL (4.0-11.0)
[2021-05-12 04:51] LABS: HEMOGLOBIN 8.6 gm/dL (14.0-18.0)
[2021-05-12 05:07] LABS: CALCIUM 8.5 mg/dL (8.5-10.1); POTASSIUM 4.5 mmol/L (3.5-5.1)
[2021-05-12 05:13] LABS: CREATININE 6.8 mg/dL (0.7-1.3)
--- NOTE | 2021-05-12 07:27 | EKG ---
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1960 Requested By: Ruben Toribio Order Number: [id number] MD: Juarez Louis Measurements Intervals [place] Rate: 68 P: 84 NE: 135 QRS: 88 QRSD: 91 T: -10 QT: 418 QTc: 445 Interpretive Statements Sinus rhythm Atrial premature complex Borderline right axis deviation Borderline T abnormalities, inferior leads Compared to ECG 05/01/2021 13:33:23 Atrial premature complex(es) now present T-wave abnormality now present Left ventricular hypertrophy no longer present ST (T wave) deviation no longer present Electronically Signed On 05-12-2021 7:27:00 CDT by Juarez Louis [email or web address] <ELECTRONICALLY SIGNED> By: Juarez Louis MD, [facility] 05/12/21 0727 46 46 Juarez Louis MD, [facility] /EPI
--- NOTE | 2021-05-12 07:28 | EKG ---
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1960 Requested By: Nasir Lam Order Number: [id number] MD: Juarez Louis Measurements Intervals [place] Rate: 73 P: 75 [place]: 144 QRS: 78 QRSD: 84 T: 47 QT: 361 QTc: 398 Interpretive Statements Sinus rhythm Probable left atrial enlargement Anteroseptal infarct, old ST elevation suggests acute pericarditis Compared to ECG 05/09/2021 22:47:12 Myocardial infarct finding now present ST (T wave) deviation now present Atrial premature complex(es) no longer present T-wave abnormality no longer present Electronically Signed On 05-12-2021 7:28:38 CDT by Juarez Louis [email or web address] <ELECTRONICALLY SIGNED> By: Juarez Louis MD, FAC 05/12/21 0728 2 2 Juarez Louis MD, FAC /EPI
--- NOTE | 2021-05-12 07:30 | EKG ---
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: : 1960 Requested By: Kirill Johnson Order Number: [id number] MD: Juarez Louis Measurements Intervals [place] Rate: 55 P: 74 OR: 128 QRS: 73 QRSD: 80 T: 13 QT: 495 QTc: 474 Interpretive Statements Sinus rhythm Anteroseptal infarct, old Compared to ECG 05/09/2021 22:47:12 Myocardial infarct finding now present Atrial premature complex(es) no longer present T-wave abnormality no longer present Electronically Signed On 05-12-2021 7:30:16 CDT by Juarez Louis [email or web address] <ELECTRONICALLY SIGNED> By: Juarez Louis MD, [facility] 05/12/21 0730 8 8 Juarez Louis MD, [facility] /EPI
--- NOTE | 2021-05-12 07:45 | NUR ---
RT CHANGED VENT SETTINGS TO CPAP TRIAL
[2021-05-12 09:43] LABS: BE(vivo) 1.6 mmol/L (-2 to +3); HCO3 27.2 mmol/L (22.0-26.0); PCO2 48.2 mmHg (35.0-45.0); PO2 72.7 mmHg (80.0-100.0); sO2 94.1 % (92.0-98.0)
--- NOTE | 2021-05-12 10:35 | NUR ---
VAT SPOKE WITH DR PALOMARES REGARDING UNABLE TO PLACE CENTRAL LINE DURING MULTIPLE ATTEMPTS. WILL ORDER PLACEMENT IN IR
--- NOTE | 2021-05-12 10:37 | 2DMMODE ---
[facility] [place] [address] 2 D/M-MODE ECHOCARDIOGRAM Name: JOSE ROBLES Room #: 244-P ADM IN M.R.#: [id number] Admission: 05/10/21 Attend Phys: Regina Carl MD Discharge: Date of : 60 Report #: [id number] THIS REPORT FOR: cc: Brandan Mcdowell MD, Srinath MD Lundgren,Ruben Alexander MD [facility] ~ APPROVED REPORT Study performed: 05/12/2021 09:01:54 EXAM: Comprehensive 2D, Doppler, and color-flow Echocardiogram Patient Location: ICU Room #: 244 Status: routine BSA: 1.82 HR: 74 bpm BP: 134/92 mmHg Rhythm: NSR Other Information Study Quality: Good Indications S^P Arrest 2D Dimensions RVDd: 51.80 mm IVSd: 14.22 (7-11mm) LVOT Diam: 20.20 (18-24mm) LVDd: 47.33 mm PWd: 12.95 (7-11mm) Ascending Ao: 36.91 (22-36mm) LVDs: 33.77 (25-40mm) Left Atrium: 42.43 (27-40mm) Aortic Root: 35.66 mm IVC: 24.00 mm Volumes Left Atrial Volume (Systole) Single Plane 4CH: 63.70 mL Single Plane 2CH: 41.28 mL LA ESV Index: 30.00 mL/m2 Aortic Valve AoV Peak Timothy.: 1.94 m/s AO Peak Gr.: 15.00 mmHg LVOT Max P.03 mmHg LVOT Max V: 1.33 m/s JULIO C Vmax: 2.19 cm2 [facility] [address] [place] [address] 2 D/M-MODE ECHOCARDIOGRAM Name: JOSE ROBLES Room #: 244-P [facility] IN [facility]#: [id number] Admission: 05/10/21 Attend Phys: Regina Carl MD Discharge: Date of : 60 Report #: [id number] Mitral Valve E/A Ratio: 1.2 MV Decel. Time: 227.69 ms MV E Max Timothy.: 0.90 m/s MV A Timothy.: 0.77 m/s MV PHT: 66.03 ms IVRT: 147.64 ms Pulmonary Vein P Vein S: 0.49 m/s P Vein A: 0.21 m/s P Vein D: 0.23 m/s P Vein A Dur.: 110.7 msec P Vein S/D Ratio: 2.13 Tricuspid Valve TR Peak Timothy.: 3.88 m/s TR Peak Gr.: 60.07 mmHg PA Pressure: 70.00 mmHg Left Ventricle The left ventricle is normal size. There is normal LV segmental wall motion. Mild to moderate concentric left ventricular hypertrophy. The left ventricular systolic function is normal. The left ventricular ejection fraction is within the normal range. LVEF is 65-70%. The left ventricular diastolic function is abnormal. Right Ventricle The right ventricle is normal size. The right ventricular systolic function is normal. Atria The left atrium size is normal. Right atrium is dilated. Aortic Valve The aortic valve is mildly calcified. No aortic regurgitation is present. There is no aortic valvular stenosis. Mitral Valve The mitral valve is normal in structure. Trace to mild mitral regurgitation. No evidence of mitral valve stenosis. Tricuspid Valve The tricuspid valve is normal in structure. There is moderate tricuspid regurgitation. Estimated pulmonary artery pressure of 70 mmHg. There is severe pulmonary hypertension. [facility] [address] [place] [address] 2 D/M-MODE ECHOCARDIOGRAM Name: JOSE ROBLES Room #: 244-P [facility] IN [facility].#: [id number] Admission: 05/10/21 Attend Phys: Regina Carl MD Discharge: Date of : 60 Report #: [id number] Pulmonic Valve The pulmonary valve is normal in structure. Trace pulmonic regurgitation. Great Vessels The aortic root is normal in size. IVC is dilated and collapses <50% with inspiration. Pericardium Small-moderate pericardial effusion. <Conclusion> The left ventricular systolic function is normal. Mild to moderate concentric left ventricular hypertrophy. There is normal LV segmental wall motion. LVEF is 65-70%. The aortic valve is mildly calcified. No aortic regurgitation or stenosis The mitral valve is normal in structure. Trace to mild mitral regurgitation. There is moderate tricuspid regurgitation. Estimated pulmonary artery pressure of 70 mmHg. Small-moderate pericardial effusion. Pericardial effusion is larger today than seen earlier in the month. <ELECTRONICALLY SIGNED> By: Ruben Devine MD, FACC 05/12/21 1037 1037 1037 Ruben Devine MD, FACC /INF
--- NOTE | 2021-05-12 11:00 | NUR ---
PER PULMONOLOGY, ORDERS GIVEN FOR CENTRAL LINE PLACEMENT IN IR D/T IV TEAM UNABLE TO PLACE CENTRAL LINE. IR TO PLACE CENTRAL LINE 05/13
--- NOTE | 2021-05-12 11:30 | NUR ---
PT VENT SETTINGS CHANGED BACK TO AC RR 18 PEEP 5 FI02 40% CPAP TRIAL STARTED AT 0729 05/12 RT TO CPAP TRAIL 05/13.
--- NOTE | 2021-05-12 15:22 | NUR ---
Chart review, discussed during am unit rounds. Vent 40 % FIO2, Peep 8. He been her before. He lives LTC at [facility]. Non-compliant with his dialysis at [facility], he missed last couple of treatments. Ha called daughter Denys # [phone], she had people in background asking why she is getting the calls. Cm tried x 2 to education on dcp and just calling to get some background information about her dad. He lived there a long time at [facility] since he has no place to live. Daughter passed phone on to Ad's sister wanted to talk with the lung doctor per his Ad sisters. Cm tried to let them know would pass on information to Dr Gaitan and then go disconnected. Cm called daughter back and no answer, called Francoise # [phone], no answer, called Danna [phone], she answered and let her know MD would be calling r/t medical question about the vent. Will cont. following as needed for dc needs.
--- NOTE | 2021-05-12 18:00 | NUR ---
PT FOLLOWS COMMANDS, SQUEEZES HAND, NODS YES/NO, AND TRACKS WITH EYES. PT HAS LEFT-SIDED WEAKNESS D/T PMHX OF CVA. WITH IN-LINE SUCTIONING, THICK SECRETIONS OCAMPO/BLOOD TINGED IN COLOR. PT COMPLETED CPAP TRIAL TODAY WITH GOOD RESULTS AND O2 SATS IN 90s. OGT WITH NEPRO TITRATED TO 30 ML/H AND WORKING GOAL OF 45 ML/H. DISCUSSED POSSIBLE EXTUBATION FOR 05/13 WITH REPEAT CPAP TRIAL. THOROUGHLY UPDATED AND EDUCATED FAMILY ON PT CONDITION AND POC.
[2021-05-13] VITALS (13 sets, daily range): BP systolic 129–198; BP diastolic 86–115
[2021-05-13 05:14] LABS: HEMATOCRIT 25.6 % (42.0-52.0); HEMOGLOBIN 8.1 gm/dL (14.0-18.0); MCH 28.7 pg (26.0-34.0); MCHC 31.7 g/dL (28.0-37.0); MCV 90.6 fL (80.0-100.0); RBC 2.82 mil/uL (4.50-6.00); RDW 15.7 % (10.5-14.5); WBC 12.8 thou/uL (4.0-11.0)
--- NOTE | 2021-05-13 14:56 | NUR ---
PT TO IR FOR CENTRAL LINE PLACEMENT. SPOKE TO SISTER AND BROTHER ON CONFERENCE CALL AND THOROUGHLY EXPLAINED PROCEDURE FOR 13 MIN AT APPROX 1114 AM BY PHONE.
--- NOTE | 2021-05-13 16:03 | NUR ---
PT AUNT (LAUREN) CALLED VERY UPSET REGARDING NOTIFICATION OF CENTRAL LINE PLACEMENT. SHE STATED THAT THE FAMILY WAS UNAWARE OF PROCEDURE. I EXPLAINED CONSENT WAS OBTAINED FROM SISTER (MARTHA) FOR CENTRAL LINE PLACEMENT. SHE STATED THAT CONSENT WAS GIVEN BY SISTER FOR CENTRAL LINE PLACEMENT AT BEDSIDE AND NOT IN IR. I AGAIN EXPLAINED THE PROCEDURE AND EMPHASIZED ITS NOT A SURGICAL PROCEDURE AND THAT SEDATION WOULD NOT BE USED. PT WAS STILL VERY UPSET AND SAID SHE WANTED TO FILE A COMPLAINT BECAUSE FAMILY WAS NOT CONTACTED. I EXPLAINED THAT THERE WAS SOME MISCOMMUNICATION ABOUT TIME PROCEDURE WOULD TAKE PLACE AND THE NURSE I COULD NOT CONTROL WHAT TIME A PROCEDURE TOOK PLACE. I TRIED TO EXPLAIN THAT ONE PERSON ONLY SHOULD BE MAIN POINT OF CONTACT FOR UPDATES ON PT. PT STATED SISTER (MARTHA) SHOULD BE MAIN POINT OF CONTACT FOR UPDATES. TALKED WITH AUNT (LAUREN) FOR APPROX 20 MINS.
--- NOTE | 2021-05-13 16:05 | NUR ---
PT RETURNED FROM IR WITH 16 CM CENTRAL LINE TO THE LEFT INTERNAL JUGULAR. IR STATED NO SEDATION WAS USED FOR PROCEDURE.
--- NOTE | 2021-05-13 18:56 | NUR ---
PT LEFT OFF ALL SEDATION POST I.R. CPAP TRIAL DONE & WAITING FOR ABG'S TO BE DRAWN.INITIALLY PT RESTLESS BUT DOING WELL. BECAME INCREASINGLY TACYPNIC,HYPERTENSIVE,DIAPHORETIC & SEVERLY AGITATED. ST'S NOTED TO BE ELEVATED ON HEAT TREATING FURNACE TENDER,STAT EKG DONE.PT TRYING TO EXTUBATE SELF,SITTING UP, FEET ALMOST ON FLOOR. UPDATED. NOW ON PROPOFOL & BACK ON VENT EARLIER.--VW
[2021-05-14] VITALS (18 sets, daily range): BP systolic 122–167; BP diastolic 83–103
--- NOTE | 2021-05-14 08:22 | EKG ---
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 Office: UNKNOWN : 1960 Requested By: Jesus Guerrero Order Number: [id number] MD: Ruben Devine Measurements Intervals [place] Rate: 95 P: 79 WI: 120 QRS: 75 QRSD: 81 T: -67 QT: 339 QTc: 426 Interpretive Statements Sinus rhythm Probable left ventricular hypertrophy Poor R wave progression Borderline T abnormalities, inferior leads Compared to ECG 05/10/2021 09:29:54 No significant changes found Electronically Signed On 05-14-2021 8:22:42 CDT by Ruben Devine [email or web address] <ELECTRONICALLY SIGNED> By: Ruben Devine MD, [facility] 05/14/21821 48 184 Ruben Devine MD, FAC /EPI
[2021-05-14 08:34] LABS: HEMATOCRIT 22.6 % (42.0-52.0); HEMOGLOBIN 7.3 gm/dL (14.0-18.0); MCH 29.3 pg (26.0-34.0); MCHC 32.2 g/dL (28.0-37.0); MCV 90.7 fL (80.0-100.0); RBC 2.49 mil/uL (4.50-6.00); RDW 15.5 % (10.5-14.5); WBC 10.9 thou/uL (4.0-11.0)
[2021-05-14 09:00] LABS: CREATININE 6.1 mg/dL (0.7-1.3); POTASSIUM 3.9 mmol/L (3.5-5.1)
--- NOTE | 2021-05-14 13:40 | NUR ---
60-year-old male continues for treatment of Acute on chronic hypercapnic hypoxic respiratory failure, due to cardiac arrest, COPD, witnessed cardiac arrest/pulseless, Hypoxic encephalopathy, Acute on Chronic Blood loss anemia, ESRD, HT, Seizure disorder and Hx of stroke. Patient is currently a resident of [facility] at [phone]. Pulmonary care of: FI02 of 40% and PEEP of 5. Per attending AM MD review: Per analysis consultant's discussion plan to begin weaning process. Sister Francoise Kolb at [phone] remains as the main next of kin contact. Others include: His Aunt Danna at [phone] who had concerns that the facility did not notify the family when the patient refuses. I spoke with Danna and explained regulations and had concerns that changes in condition are not being called to the family. Called [facility] and left a message outlining concerns to the ladle car operator and requested a call back. Also has a daughter Denys Crowder at [phone] remain as next of kin. CM preliminary discharge plan would be upon evaluations once more medically stable from PT/OT would be return to Skilled level of care at [facility]. Currently CM is working to have patient begin Dialysis at [facility] as new dialysis. Noting that patient's last dialysis clinic can not accept back due to non-compliance for greater than 30-days. CM continues to follow MD's direction for care and transition and will intervene as needs are identified.
--- NOTE | 2021-05-14 15:22 | NUR ---
1520HRS - CPAP TRIAL.
[2021-05-14 16:40] LABS: BE(vivo) 2.3 mmol/L (-2 to +3); HCO3 28.1 mmol/L (22.0-26.0); PO2 63.1 mmHg (80.0-100.0); pH 7.367 (7.360-7.450); sO2 91.2 % (92.0-98.0)
--- NOTE | 2021-05-14 17:21 | NUR ---
FAXED CLINICAL UPDATES TO [facility]. [facility] P [phone]; FAX [phone]
--- NOTE | 2021-05-14 18:28 | NUR ---
1520HRS - RECEIVED PT, REPORT GIVEN, RESTRAINTS X2, ETT ON VENT, FOLLOWS COMMANDS WITH BEHAVIORAL NONCOMPLIANTS. NO PISANO, TRIPLE LUMEN L IJ. L FISTULA TO UPPER ARM WITH DRSG.
[2021-05-15] VITALS (32 sets, daily range): BP systolic 92–141; BP diastolic 69–96
[2021-05-15 05:17] LABS: HEMATOCRIT 24.8 % (42.0-52.0); HEMOGLOBIN 8.3 gm/dL (14.0-18.0); MCHC 33.6 g/dL (28.0-37.0); MCV 89.4 fL (80.0-100.0); RBC 2.78 mil/uL (4.50-6.00); RDW 15.3 % (10.5-14.5); WBC 9.4 thou/uL (4.0-11.0)
[2021-05-15 05:49] LABS: CALCIUM 8.7 mg/dL (8.5-10.1); POTASSIUM 4.4 mmol/L (3.5-5.1)
[2021-05-15 05:55] LABS: CREATININE 7.3 mg/dL (0.7-1.3)
--- NOTE | 2021-05-15 10:22 | NUR ---
0730-Assumed care of pt. HD being set up.--VW 1000- IN TO SEE.-VW
[2021-05-16] VITALS (13 sets, daily range): BP systolic 131–165; BP diastolic 81–112
--- NOTE | 2021-05-16 08:17 | NUR ---
faxed updates to renetta bonilla [employer].
--- NOTE | 2021-05-16 11:30 | NUR ---
spoke with bubba she stopped and said when made decision to have primary contact is hina, # [phone]. Cm called zuleyma, re-education on dcp and ready soon as dialysis is set up again since richy camacho dropped him for missing so many tx. Vladimir wants to facility for him to live at or she will try and figure out how to bring him home and get him to and from dialysis. I guess i will be primary contact, no one else will. Send to [facility] per hina. Re-education that if cant find new ltc he will have to go [facility]br or home with family when dc ready to dc. ok thanks you for help per hina.
--- NOTE | 2021-05-16 11:40 | NUR ---
THIS RN CALLED THE PATIENT'S SISTER MARTHA FLOREZ FROM [phone]. THE SISTER WAS UPDATED ON THE PATIENT'S CONDITION AND PLAN OF CARE.
--- NOTE | 2021-05-16 17:12 | NUR ---
PT TRANSFERRED TO ROOM 202, CCU, AT 1700. PT'S SISTER MARTHA FLOREZ ACCOMPANIED PT DURING TRANSFER. ALL PT BELONGING BROUGHT WITH THE PT DURING TRANSFER.
--- NOTE | 2021-05-16 17:57 | NUR ---
PT TRANSFERED FROM THE ICU VIA BED, - ORIENTED TO ROOM AND BEDSPACE - SISTER PRESENT AT TIME OF TRANSFER. PT WITH SWELLING TO R [facility] - WARM BLANKET PLACE AROUND ARM AND ELEVATED ON A PILLOW. PT STATES ARM PAINFUL WHEN TOUCHED. NO OTHER CO'S AT THE PRESENT TIME.
[2021-05-17 03:30] VITALS: BP 170/109
[2021-05-17 07:30] VITALS: BP 207/122
--- NOTE | 2021-05-17 07:51 | NUR ---
Assumed pt's care this pm shift. Oriented to self. Knows he's in a hospital [facility]. Confused. Forgetful. Pt slept very little this shift. On nectar thick liquid. Dialyis this am (tues/thurs/sat). Pt did take meds whole in applesauce. Tolerated well. Fall precaution remained in place. Innappropriate use of call light. Fistula TASH bruit and thrill.
[2021-05-17 11:30] VITALS: BP 167/134
[2021-05-17 19:43] VITALS: BP 145/113
[2021-05-18] VITALS (10 sets, daily range): BP systolic 124–207; BP diastolic 93–138
[2021-05-18 04:58] LABS: ALBUMIN 2.5 g/dL (3.4-5.0); PHOSPHORUS 3.8 mg/dL (2.6-4.7); POTASSIUM 3.5 mmol/L (3.5-5.1); TOTAL BILIRUBIN 0.7 mg/dL (0.2-1.0); TOTAL PROTEIN 7.2 g/dL (6.4-8.2)
[2021-05-18 05:16] LABS: ABSOLUTE NEUTROPHILS 13.2 thou/uL (1.4-8.2); BASOPHILS 0.1 % (0.0-2.0); EOSINOPHILS 0.1 % (0.0-3.0); HEMATOCRIT 24.8 % (42.0-52.0); HEMOGLOBIN 8.2 gm/dL (14.0-18.0); LYMPHOCYTES 3.9 % (24.0-44.0); MCH 29.7 pg (26.0-34.0); MCHC 32.9 g/dL (28.0-37.0); MCV 90.2 fL (80.0-100.0); MONOCYTES 5.9 % (1.0-8.0); PLATELET COUNT 98 thou/uL (150-400); RBC 2.75 mil/uL (4.50-6.00); RDW 15.5 % (10.5-14.5); WBC 14.7 thou/uL (4.0-11.0)
--- NOTE | 2021-05-18 07:00 | NUR ---
Assumed pt's care overnight shift. Oriented to self. Confused. Forgetful. Compliant with meds this shift. SR/ST on tele. On 2L NC. Hypertensive this shift. Pt did receive prn hydralazine, as well as scheduled po hydralazine this am. See emar. Oncall provider aware. Ok to restart other bp meds per oncall provider. Fall precaution remains in place. Pt can get impulsive. Pain meds given this shift. Kept asking to go to hospital. Reorientation as needed. TASH fistula(wed//sat hemodialysis). Nursing to continue to monitor.
[2021-05-19 04:45] VITALS: BP 154/110
--- NOTE | 2021-05-19 04:53 | NUR ---
PT ALERT TO SELF CONFUSED ON SITUATION. ASKING ME TO CALL 911 EXPLAIN TO PT HE IS ALERADY AT A HOSPITAL. CLEAR TO DIMINISHED. ON 3 LITERS NASAL LAURENCE. ABDOMEN IS SOFT AND FLAT COMPLAINS OF STOMACHE AND NONCARDIAC CHEST PAIN. SCDS ON BILAERAL. PAIN MEDS GIVEN WITH RELIEF WITH MEDS NOTED. CALL LIGHT WITHIN REACH IF NEEDS ASSISTANCE PER NURSING
[2021-05-19 08:00] VITALS: BP 147/70
[2021-05-19 09:20] VITALS: BP 160/89
--- NOTE | 2021-05-19 12:02 | NUR ---
Spoke with [facility]. They report patient has not been to clinic in more than 30 days. It is not that they will not accept patient for return its that they have given his clinic chair time to new patient. They do not have a chair time for patient at this time. [facility] declined patient. Sp with Jamie who is still reviewing. They plan to inquire with their clinic if accepting of patient for chair time. Faxed clinical update.
[2021-05-19 12:13] VITALS: BP 152/90
[2021-05-19 16:05] VITALS: BP 130/83
[2021-05-19 22:32] VITALS: BP 132/93
[2021-05-20 03:27] VITALS: BP 141/89
[2021-05-20 08:00] VITALS: BP 143/97
--- NOTE | 2021-05-20 09:00 | NUR ---
PT RECIEVING DIALYSIS AT BEDSIDE AT THIS TIME.
[2021-05-20 11:30] VITALS: BP 148/77
--- NOTE | 2021-05-20 11:52 | NUR ---
PT FINISH DIALYSIS WILL GIVEN DAILY PILLS WITH LUNCH.
--- NOTE | 2021-05-20 14:47 | NUR ---
PT REFUSING PT/OT ND [facility]PAR[facility] SQ TODAY. PT TOLERATED DIALYSIS. PT REMAINS A FULL FEED AND TOLERATING ABOUT HALF OF MEALS. WILL CONTINUE TO ASSESS.
[2021-05-20 16:40] VITALS: BP 128/89
--- NOTE | 2021-05-20 16:55 | NUR ---
Spoke with admissions at [facility] this am. THey did not rec the Hep B panel faxed last evening, although rec confirmation. Faxed Hep B panel from February requested to alert if rec and accepted. No return call. Called [facility] multiple times today. Either left on hold or no return call. Sp with [facility] dtr at bedside. she wanted to inquire into [facility]. Sp with admissions they report a wait list for ltc medicaid beds. Discussed with dtr can place patient on wait list. She is agreeable. Alerted [facility] declined. Awaiting input from [facility].
[2021-05-20 19:45] VITALS: BP 116/81
[2021-05-21 00:49] VITALS: BP 122/76
[2021-05-21 04:45] VITALS: BP 144/87
[2021-05-21 07:00] VITALS: BP 167/106
[2021-05-21 11:10] VITALS: BP 124/84
[2021-05-21 15:00] VITALS: BP 144/85
--- NOTE | 2021-05-21 15:46 | NUR ---
Spoke with MEDICAL LOGISTICS SPECIALIST of [place] this am. Requested answer if able to accept patient. He [facility] but did not. Called and spoke to Jessica. She reports admissions is not in today and "alot going on at facility today." She reports she will have admissions call [facility] in am. She reports they are likely still awaiting for [facility] dialysis acceptance.
[2021-05-21 19:55] VITALS: BP 136/93
[2021-05-22] VITALS (7 sets, daily range): BP systolic 128–162; BP diastolic 68–97
--- NOTE | 2021-05-22 05:00 | NUR ---
PT IS ORIENTED X1-2. HE IS MOSTLY CONFUSED, BUT REDIRECTABLE. SR ON TELE. PT C/O NONCARDIAC CHEST PAIN AND OCCASSIONAL SOA. PRN MORPHINE AND TYLENOL GIVEN INDICATED, WITH SOME RELIEF. DRESSING CHANGED TO RIGHT ARM WOUND. PT SAT ON SIDE OF BED MOST OF THE NIGHT. FALL PRECAUTIONS IN PLACE. PROGRESSING SLOWLY TOWARD POC GOALS.
--- NOTE | 2021-05-22 08:30 | NUR ---
VASCULAR ACCESS NURSE ROUNDING. THIS PATIENT IS NOW ON ONLY 2 IVP MEDS. THE CENTRAL LINE ACCESS IS NO LONGER NECESSARY. SUGGEST PERIPHERAL IV PLACEMENT AND REMOVAL OF CENTRAL LINE TO DECREASE THE RISK OF A CENTRAL LINE RELATED BLOOD STREAM INFECTION
--- NOTE | 2021-05-22 10:53 | NUR ---
Assumed care of pt this AM. Pt is A&O x2 on RA. Pt having scheduled dialysis this AM, removed 3L. BP medications held this AM. Pt c/o chest pain, given topical ointment & PRN pain medication. SR on the monitor. Fall precautions in place. Will continue to monitor pts needs throughout day.
[2021-05-22] MEDS ORDERED: NORVASC5 MG PO (10:57)
[2021-05-22] MEDS ORDERED: HYDRALAZINE 5050 MG PO (11:03)
--- NOTE | 2021-05-22 12:52 | NUR ---
Electronics Specialist spoke with [facility] liason. She has confirmed acceptance with the [facility] and indicates that their onsite [facility] does have an openning for the pt. Hep b, therapy notes, and dc orders for snf faxed to admissions. They will call the pt's sister Francoise and arrange for w/c van with o2 later this afternoon. Chart copy in progress. Awaiting confirmation call back from [facility] and a transport time. Care team and unit updated.
--- NOTE | 2021-05-26 18:34 | HC ---
[facility] [place] [address] CONSULTATION Name: JOSE ROBLES Room #: 202-P [facility] IN M.R.#: [id number] Admission: 05/10/21 Attend Phys: Regina Carl MD Discharge: 05/22/21 Date of : 60 Report #: [id number] THIS REPORT FOR: cc: Brandan Mcdowell MD, Srinath MD Al-Absi,David Shaver MD ~ DATE OF SERVICE: 05/10/2021 REASON FOR CONSULTATION: End-stage renal disease. REASON FOR THE PRESENTATION: Brought from his nursing facility because of worsening weakness and shortness of breath. Status post within the emergency room. HISTORY OF PRESENT ILLNESS: This is a very well known patient to me. Details are obtained from the medical chart. He is currently intubated. He is in end-stage renal disease with extreme noncompliance. Apparently he missed his dialysis treatment and presented with weakness and shortness of breath. He arrested in the emergency room. He is intubated. I am being asked to manage his end-stage renal disease. He was found to have significant pulmonary edema and hyperkalemia. PAST MEDICAL HISTORY: Obtained from the medical chart. 1. End-stage renal disease. 2. Noncompliance. 3. Hypertension. 4. Recurrent admission. 5. Life-threatening hyperkalemia. 6. Pulmonary edema, recurrent. 7. Alcohol abuse. MEDICATIONS: 1. Keppra. 2. Carvedilol. 3. Hydralazine. 4. Gabapentin. 5. Sertraline. ALLERGIES: PENICILLIN. SOCIAL HISTORY: He resides in a nursing facility. No other details available given his mental status. REVIEW OF SYSTEMS: Unobtainable given the fact that the patient is currently intubated. FAMILY HISTORY: Unobtainable given the fact that the patient is currently [facility] [address] [address] CONSULTATION Name: TRAVISJOSE Room #: 202-P [facility] IN [facility]#: [id number] Admission: 05/10/21 Attend Phys: Regina Carl MD Discharge: 05/22/21 Date of : 60 Report #: [id number] intubated. PHYSICAL EXAMINATION: VITAL SIGNS: Blood pressure 126/76, pulse rate is 54, respiratory rate is 15. HEAD AND NECK: Intubated. ET tube in place. CHEST: Bilateral crackles. CARDIOVASCULAR: No rub detected. ABDOMEN: Soft, nontender. LOWER EXTREMITIES: +3 edema. LABORATORY VALUES: Hemoglobin 7.9. Sodium 149, potassium 6.3, BUN of 166, creatinine of 16.8. Calcium is 15.2. Troponin 713. Chest x-ray consistent with pulmonary edema. ASSESSMENT, IMPRESSION AND PLAN: 1. Post-cardiac arrest. 2. Severe noncompliance. 3. End-stage renal disease. 4. Hyperkalemia. 5. Hypercalcemia. 6. Emergent dialysis arranged for the patient today. Unfortunately, this is a consequence for the patient's behavior. He was warned about that many times. We will continue to follow. <ELECTRONICALLY SIGNED> By: David Gillespie MD 05/26/21 1834 [id number] David Gillespie MD /nt
== END 2021-05-22 18:23 | DRG 207 ==
LOC: ER 20:48 → EROBS 05-10 00:25 → ICU 05-10 06:32 → 2N 05-16 16:58
PROVIDERS: Emergency Medicine; Hospitalist; Internal Medicine; Internal Medicine Pulmonary Disease; Nurse Practitioner Family; Pediatrics; ADMIT Internal Medicine; ATTEND Internal Medicine
PROC: 0BH17EZ Insertion of Endotracheal Airway into Trachea, Via Natural or Artificial Opening (ICD-10-PCS; principal; 2021-05-10)
PROC: 5A1D70Z Performance of Urinary Filtration, Intermittent, Less than 6 Hours Per Day (ICD-10-PCS; principal; 2021-05-10)
PROC: 5A1955Z Respiratory Ventilation, Greater than 96 Consecutive Hours (ICD-10-PCS; principal; 2021-05-10)
PROC: 5A12012 Performance of Cardiac Output, Single, Manual (ICD-10-PCS; principal; 2021-05-10)
PROC: 5A1D70Z Performance of Urinary Filtration, Intermittent, Less than 6 Hours Per Day (ICD-10-PCS; 2021-05-11)
PROC: 30233N1 Transfusion of Nonautologous Red Blood Cells into Peripheral Vein, Percutaneous Approach (ICD-10-PCS; 2021-05-11)
PROC: 5A1D70Z Performance of Urinary Filtration, Intermittent, Less than 6 Hours Per Day (ICD-10-PCS; 2021-05-13)
PROC: B548ZZA Ultrasonography of Superior Vena Cava, Guidance (ICD-10-PCS; 2021-05-13)
PROC: 02HV33Z Insertion of Infusion Device into Superior Vena Cava, Percutaneous Approach (ICD-10-PCS; 2021-05-13)
PROC: B5181ZA Fluoroscopy of Superior Vena Cava using Low Osmolar Contrast, Guidance (ICD-10-PCS; 2021-05-13)
PROC: 5A1D70Z Performance of Urinary Filtration, Intermittent, Less than 6 Hours Per Day (ICD-10-PCS; 2021-05-17)
PROC: 5A1D70Z Performance of Urinary Filtration, Intermittent, Less than 6 Hours Per Day (ICD-10-PCS; 2021-05-20)
DX: J96.21 Acute and chronic respiratory failure with hypoxia (principal); I46.9 Cardiac arrest, cause unspecified; N18.6 End stage renal disease; G93.41 Metabolic encephalopathy; D62 Acute posthemorrhagic anemia; G93.1 Anoxic brain damage, not elsewhere classified; L02.413 Cutaneous abscess of right upper limb; I69.354 Hemiplegia and hemiparesis following cerebral infarction affecting left non-dominant side; I12.0 Hypertensive chronic kidney disease with stage 5 chronic kidney disease or end stage renal disease; J96.22 Acute and chronic respiratory failure with hypercapnia; E87.5 Hyperkalemia; R77.8 Other specified abnormalities of plasma proteins; Z20.822 Contact with and (suspected) exposure to COVID-19; E78.5 Hyperlipidemia, unspecified; J44.9 Chronic obstructive pulmonary disease, unspecified; I25.10 Atherosclerotic heart disease of native coronary artery without angina pectoris; N40.0 Benign prostatic hyperplasia without lower urinary tract symptoms; K21.9 Gastro-esophageal reflux disease without esophagitis; F32.9 Major depressive disorder, single episode, unspecified; E83.52 Hypercalcemia; D69.6 Thrombocytopenia, unspecified; G40.909 Epilepsy, unspecified, not intractable, without status epilepticus; D63.8 Anemia in other chronic diseases classified elsewhere; I95.9 Hypotension, unspecified; I25.2 Old myocardial infarction; Z88.0 Allergy status to penicillin; Z91.14 Patient's other noncompliance with medication regimen; Z86.718 Personal history of other venous thrombosis and embolism
CPT/HCPCS: 10078; 10081; 32100; 85076

== ENCOUNTER 2021-05-22 21:28 | Emergency (ER) | payer OTHER ==
[~2021-05-22] VITALS: Ht 180.3 cm; Wt 74.4 kg
--- NOTE | ~2021-05-22 | EMS ---
[address] [address] EMS Patient Care Report Name: JOSE ROBLES Room #: REG SVITLANA Tristan#: [id number] Admission: 05/22/21 Attend Phys: Discharge: Date of : 60 Report #: [id number] THIS REPORT FOR: //name// Report Transmitted: 05/22/2021 21:58 EMS Care Summary [place], [place]/[facility] Incident [id number] @ 05/22/2021 20:58 Incident Location [id number] [place] [address] 507 Patient JOSE ROBLES Male, 60 Years 1960 Patient Address [address] [place], [place] [id number] Patient History Cardiac Arrest,Chronic Obstructive Pulmonary Disease (COPD),Hypertension (HTN),Smoking,Stroke/CVA,Hyperlipidemia,Gastro-Esophageal Reflux Disease (GERD),Pneumonia,Depression,Dialysis,Hyperkalemia,Chronic Kidney Disease,Myocardial Infarction (PA), Patient Allergies Penicillin allergy, Patient Medications Pantoprazole, Atorvastatin, Hydralazine, Doxycycline, Carvedilol, Sertraline, None Reported, Levetiracetam, Hydrocodone, Midodrine, Chief Complaint chest pain/pain control Disposition Transported No Lights/[place] Dispatch Reason Falls Transported To [address] [address] EMS Patient Care Report Name: JOSE ROBLES Room #: REG SVITLANA Tristan#: [id number] Admission: 05/22/21 Attend Phys: Discharge: Date of : 60 Report #: [id number] Narrative [place] staff reports that we were not called for a fall. we were called for pt who just arrived at their facility today as a new pt. pt is a post code, coming from [facility]. he arrived at their facility today w/ chest wall pain secondary from CPR during resuscitation. pt was receiving Vicodin at [facility] for his pain but does not have anything stronger than Tylenol prescribed now. staff gave pt Tylenol earlier and now he is req transport for additional pain control. pt is alert, found seated on bedside. he rates pain at 2-3/10. he is normally on 02 3L/NC. pt transferred to cot, VS, EKG, transport w/o change. Initial Vitals @21:17P: 77,R: 20,BP: 179/105,Pain: 2/10,GCS: 15,SpO2: 94,Revised Trauma: 12, Assessments @21:05MENTAL:No Abnormalities,SKIN:No Abnormalities,HEENT:Head/Face: No Abnormalities,LUNG SOUNDS:ABDOMEN:PELVIS//GI:EXTREMITIES:Right Arm: Other,Left Arm: Other,PULSE:NEURO:No Abnormalities, Impression Chest Pain, Other (Non-Cardiac) Procedures @21:05ALS AssessmentResponse: Unchanged@21:08StretcherResponse: Unchanged@21:133-Lead ECGResponse: Unchanged@21:15Oxygen FlowRate: 3 Device: Nasal Cannula (NC) Response: UnchangedSucceeded Timeline 20:55,Call Received 20:55,Dispatch Notified 20:58,Dispatched 20:58,En Route 21:03,On Scene 21:05,At Patient 21:05,ALS Assessment,Response: Unchanged 21:08,Stretcher,Response: Unchanged 21:13,3-Lead ECG,Response: Unchanged 21:15,Oxygen FlowRate: 3 Device: Nasal Cannula (NC) Response: UnchangedSucceeded, 21:17,BP: 179/105 M,PULSE: 77,RR: 20 R,SPO2: 94 Ox,ETCO2: ,BG: ,PAIN: 2,GCS: 15, 21:18,Depart Scene 21:26,At Destination 21:45,Call Closed Disclaimer v1.1 Copyright 2020 [employer], [address] [address] EMS Patient Care Report Name: JOSE ROBLES Room #: REG Kun#: [id number] Admission: 05/22/21 Attend Phys: Discharge: Date of : 60 Report #: [id number] This EMS Care Summary contains data elements from the applicable legal record (which may be displayed differently). It is designed to provide pertinent information for the following purposes: continuity of care, clinical quality, and state data reporting. The complete legal record is available to ED staff and administrators of the receiving hospital in [employer]'s Patient Tracker. All data is provided "as is."
[~2021-05-22 21:28] MED LIST changes: +NORVASC5 MG PO
[2021-05-22 22:20] LABS: BASOPHILS 0.5 % (0.0-2.0); HEMATOCRIT 23.3 % (42.0-52.0); HEMOGLOBIN 7.4 gm/dL (14.0-18.0); LYMPHOCYTES 2.3 % (24.0-44.0); MCH 28.9 pg (26.0-34.0); MCHC 31.7 g/dL (28.0-37.0); MCV 91.1 fL (80.0-100.0); MONOCYTES 4.2 % (1.0-8.0); PLATELET COUNT 131 thou/uL (150-400); RBC 2.55 mil/uL (4.50-6.00); WBC 12.8 thou/uL (4.0-11.0)
[2021-05-22 22:28] LABS: CALCIUM 8.5 mg/dL (8.5-10.1); CREATININE 4.2 mg/dL (0.7-1.3); POTASSIUM 4.2 mmol/L (3.5-5.1)
[2021-05-23 00:25] VITALS: BP 170/89
--- NOTE | 2021-05-23 08:09 | EKG ---
[place] [address] [facility] [place] [address] ELECTROCARDIOGRAM REPORT Name: JOSE ROBLES [id number] Admission: 05/22/21 Attend Phys: Discharge: 05/23/21 Date of : 60 Report #: [id number] [facility] ED Test Date: 2021-05-22 Test Time: 21:45:58 Pat Name: JOSE ROBLES Department: Room: Gender: M Retort Setter: MPAJOSEPH : 1960 Requested By: Brandon Langston Order Number: [id number] MD: Juarez Louis Measurements Intervals [place] Rate: 70 P: 65 MN: 114 QRS: 35 QRSD: 81 T: 101 QT: 400 QTc: 432 Interpretive Statements Sinus rhythm Borderline short MN interval Probable left atrial enlargement Probable left ventricular hypertrophy Nonspecific T abnormalities, lateral leads Compared to ECG 05/13/2021 18:49:56 Poor R-wave progression no longer present T-wave abnormality still present Electronically Signed On 05-23-2021 8:09:29 CDT by Juarez Louis [email or web address] <ELECTRONICALLY SIGNED> By: Juarez Louis MD, [facility] 05/23/21 0809 2145 2145 Juarez Louis MD, [facility] /EPI
== END 2021-05-23 00:25 | disposition home or self-care (01) ==
LOC: ER 21:28
PROVIDERS: Emergency Medicine
DX: R07.89 Other chest pain (principal); N18.6 End stage renal disease; I10 Essential (primary) hypertension; E78.5 Hyperlipidemia, unspecified; J44.9 Chronic obstructive pulmonary disease, unspecified; F32.9 Major depressive disorder, single episode, unspecified; K21.9 Gastro-esophageal reflux disease without esophagitis; F17.210 Nicotine dependence, cigarettes, uncomplicated; Z79.899 Other long term (current) drug therapy; Z88.0 Allergy status to penicillin

== ENCOUNTER 2021-05-30 16:54 | Emergency (ER) | payer OTHER ==
[~2021-05-30] VITALS: Ht 182.9 cm; Wt 68.0 kg
--- NOTE | ~2021-05-30 | EMS ---
[address] [address] EMS Patient Care Report Name: JOSE ROBLES Room #: REG SVITLANA Tristan#: [id number] Admission: 05/30/21 Attend Phys: Discharge: Date of : 60 Report #: [id number] THIS REPORT FOR: //name// Report Transmitted: 05/30/2021 17:35 EMS Care Summary [place], [place]/[facility] Incident [id number] @ 05/30/2021 16:23 Incident Location [address] [place] [address] Patient JOSE ROBLES Male, 60 Years 1960 Patient Address [address] [place] [address] Patient History Cardiac Arrest,Congestive Heart Failure (CHF),Chronic Obstructive Pulmonary Disease (COPD),Dementia,Hypertension (HTN),Smoking,Stroke/CVA,Hyperlipidemia,Gastro-Esophageal Reflux Disease (GERD),Pneumonia,Depression,Dialysis,Hyperkalemia,Chronic Kidney Disease,Myocardial Infarction (AR), Patient Allergies Penicillin allergy, Patient Medications Gabapentin, Carvedilol, Acetaminophen, Hydrocodone, Hydralazine, Finasteride, Doxycycline, Levetiracetam, Pantoprazole, [place], Amlodipine, Atorvastatin, Keflex, Clopidogrel, Midodrine, Keppra, Sertraline, Chief Complaint Needs dialysis Disposition Transported No Lights/[place] Dispatch Reason [place] [address] EMS Patient Care Report Name: JOSE ROBLES Room #: REG [facility].#: [id number] Admission: 05/30/21 Attend Phys: Discharge: Date of : 60 Report #: [id number] [facility] Narrative M36 dispatched on a sick person. M36 arrived to residential to find PT seated in wheelchair at threshold to room. PT on oxygen. PT stated dialysis as chief complaint. NH staff stated PT last dialysis on wednesday. NH staff stated PT "needs to have a Hep B panel drawn before we can do dialysis in house." NH staff stated "we have tried twice to draw labs and our lab stinks." NH staff stated they "tried to get a wheelchair van to take him, but he was denied due to insurance." NH staff stated PT was in cardiac arrest in the last two weeks and as a result has four broken ribs. NH staff stated "his family is irate and wants him sent out for dialysis." PT lifted from wheelchair to stretcher. PT secured with seatbelts. Surgical mask placed on PT. PT vitals monitored during transport. PT report given. PT moved to hospital bed via three person sheet lift. PT care and belongings transferred to ER staff at [facility] without incident. M36 placed back in service. Initial Vitals @16:46P: 80,R: 14,BP: 154/88,Pain: 8/10,GCS: 15,SpO2: 89,Revised Trauma: 12, @16:40P: 70,R: 14,BP: 170/94,Pain: 8/10,GCS: 15,SpO2: 81,Revised Trauma: 12, Assessments @16:33MENTAL:Place Oriented,Time Oriented,Person Oriented,Event Oriented,SKIN:Pale,HEENT:Head/Face: Drainage,LUNG SOUNDS:ABDOMEN:PELVIS//GI:EXTREMITIES:Left Arm: Other,Right Arm: Other,PULSE:Radial: 2+ Normal,NEURO: Impression Congestive heart failure (CHF) Procedures @16:33ALS AssessmentResponse: UnchangedSucceeded@PTAOxygen FlowRate: 3 Device: Nasal Cannula (NC) Response: UnchangedSucceeded Timeline HEAT TREATER APPRENTICE,Oxygen FlowRate: 3 Device: Nasal Cannula (NC) Response: UnchangedSucceeded, 16:20,Call Received 16:20,Dispatch Notified 16:23,Dispatched 16:23,En Route 16:31,On Scene 16:32,At Patient 16:33,ALS Assessment,Response: UnchangedSucceeded, 16:40,BP: 170/94 M,PULSE: 70,RR: 14 R,SPO2: 81 Ox,ETCO2: ,BG: ,PAIN: 8,GCS: 15, 16:42,Depart Scene [address] [address] EMS Patient Care Report Name: JOSE ROBLES Room #: REG SVITLANA Tristan#: [id number] Admission: 05/30/21 Attend Phys: Discharge: Date of : 60 Report #: [id number] 16:46,BP: 154/88 M,PULSE: 80,RR: 14 R,SPO2: 89 Ox,ETCO2: ,BG: ,PAIN: 8,GCS: 15, 16:49,At Destination 17:05,Call Closed Disclaimer v1.1 Copyright 2020 [employer] This EMS Care Summary contains data elements from the applicable legal record (which may be displayed differently). It is designed to provide pertinent information for the following purposes: continuity of care, clinical quality, and state data reporting. The complete legal record is available to ED staff and administrators of the receiving hospital in [employer]'s Patient Tracker. All data is provided "as is."
[2021-05-30 18:09] LABS: ABSOLUTE NEUTROPHILS 7.5 thou/uL (1.4-8.2); BASOPHILS 0.6 % (0.0-2.0); EOSINOPHILS 0.8 % (0.0-3.0); HEMATOCRIT 22.2 % (42.0-52.0); HEMOGLOBIN 7.2 gm/dL (14.0-18.0); LYMPHOCYTES 8.7 % (24.0-44.0); MCH 28.7 pg (26.0-34.0); MCHC 32.2 g/dL (28.0-37.0); MCV 89.1 fL (80.0-100.0); PLATELET COUNT 170 thou/uL (150-400); POLYS 78.9 % (36.0-66.0); RDW 15.8 % (10.5-14.5); WBC 9.5 thou/uL (4.0-11.0)
[2021-05-30 18:20] LABS: CALCIUM 8.5 mg/dL (8.5-10.1); CREATININE 7.7 mg/dL (0.7-1.3); POTASSIUM 5.6 mmol/L (3.5-5.1)
[2021-05-30 18:28] LABS: ALBUMIN 2.1 g/dL (3.4-5.0); MAGNESIUM 1.7 mg/dL (1.8-2.4); TOTAL BILIRUBIN 0.4 mg/dL (0.2-1.0); TOTAL PROTEIN 6.1 g/dL (6.4-8.2)
[2021-05-30 21:56] VITALS: BP 160/100
--- NOTE | 2021-05-31 15:01 | EKG ---
[place] [place] [address] ELECTROCARDIOGRAM REPORT Name: JOSE ROBLES Room #: [facility] [id number] Admission: 05/30/21 Attend Phys: Discharge: 05/30/21 Date of : 60 Report #: [id number] [facility] ED Test Date: 2021-05-30 Test Time: 17:23:11 Pat Name: JOSE ROBLES Department: Room: Gender: Entry Level Programmer: : 1960 Requested By: Jocy Ortega Order Number: [id number] MD: Ruben Devine Measurements Intervals [place] Rate: 61 P: 54 CA: 121 QRS: 30 QRSD: 74 T: 145 QT: 441 QTc: 445 Interpretive Statements Sinus rhythm Probable LVH with secondary repol abnrm Compared to ECG 05/22/2021 21:45:58 No significant change was found Electronically Signed On 05-31-2021 15:01:12 CDT by Ruben Devine [email or web address] <ELECTRONICALLY SIGNED> By: Ruben Devine MD, FACC 05/31/21 1501 1723 1723 Ruben Devine MD, FACC /EPI
== END 2021-05-30 21:56 | disposition home or self-care (01) ==
LOC: ER 16:54
PROVIDERS: Physician Assistant
DX: I12.0 Hypertensive chronic kidney disease with stage 5 chronic kidney disease or end stage renal disease (principal); N18.6 End stage renal disease; E78.5 Hyperlipidemia, unspecified; J44.9 Chronic obstructive pulmonary disease, unspecified; I25.10 Atherosclerotic heart disease of native coronary artery without angina pectoris; F32.9 Major depressive disorder, single episode, unspecified; F17.210 Nicotine dependence, cigarettes, uncomplicated; K21.9 Gastro-esophageal reflux disease without esophagitis; Z86.73 Personal history of transient ischemic attack (TIA), and cerebral infarction without residual deficits; Z99.2 Dependence on renal dialysis; Z91.15 Patient's noncompliance with renal dialysis; Z79.899 Other long term (current) drug therapy; Z79.891 Long term (current) use of opiate analgesic; Z79.1 Long term (current) use of non-steroidal anti-inflammatories (NSAID); Z88.0 Allergy status to penicillin